=== PATIENT | female | born 1975 | race American Indian/Alaskan Native ===

== ENCOUNTER → 2016-10-01 | Outpatient (CLI) | payer MEDICAID ==
--- NOTE | 2016-10-01 16:50 | CR ---
EXAMINATION: Thoracic spine HISTORY: Pain COMPARISON: CT dated 01/24/2016 TECHNIQUE: AP and lateral views FINDINGS: The thoracic spinal alignment appears grossly normal. The vertebral body heights and disc spaces appear well-maintained. There is no fracture or dislocation. Minimal marginal osteophytes are noted. Bone mineralization appears normal. No acute findings. IMPRESSION: Mild degenerative changes without acute findings.
== END ==
LOC: MW.CHRC 13:59
PROVIDERS: ATTEND Family Medicine
DX: M54.6 Pain in thoracic spine (principal)
CPT/HCPCS: 72072; 72072-26

== ENCOUNTER → 2016-10-15 | Outpatient (CLI) | payer MEDICAID ==
--- NOTE | 2016-10-16 15:20 | MR ---
EXAM DATE: 10/15/16 PATIENT'S AGE: 41 Patient: ARTHUR HUFF Facility: [place], [place] Site . Site : 1975 Study: MRI Shoulder Right [id number]/20/2017 7:07:58 PM Ordering Physician: Kayleigh Patten Final Report: Indication: Pain after fall. Comparison: None. Technique: Axial T2 fat sat, coronal PD and T2 fat sat and sagittal T1 and T2 fat-sat sequences. Findings: Rotator cuff: Supraspinatus, infraspinatus, teres minor and subscapularis tendons are intact. No tear or tendinosis. No rotator cuff muscle atrophy or edema. Acromioclavicular joint and coracoacromial arch: Flat type 1 undersurface to the lateral acromion. Acromial humeral distance at narrowest is 8 mm. Thickness of the coracoacromial ligament is normal. Minimal degenerative arthrosis changes at the acromioclavicular joint with shallow subchondral edema and cysts of the distal clavicle. No significant inferior osteophytes. No significant fluid in the subacromial/subdeltoid bursa. Clavicle is intact with normal appearing coracoclavicular ligament. Subcoracoid interval and coracoid index are normal. Biceps labral complex: No labral tear. Biceps anchor is intact. Long head of the biceps is appropriately located with expected caliber and signal. Glenohumeral joint: Anatomic alignment. Uniform cartilage. Physiologic fluid. No capsulitis. Bones and soft tissues: Deltoid bulk and signal is normal. Axilla is clear. No bone lesion or fracture. Impression: Minimal degenerative arthrosis acromioclavicular joint. No other significant finding. Dictated by Gurdeep Valadez MD @ Oct 16 2016 10:11AM (Electronic Signature) Report Signed by Proxy and Original Signed Document filed in the Medical Record. MTDD
== END | disposition home or self-care (01) ==
LOC: MW.MRI 16:53
PROVIDERS: ATTEND Family Medicine
DX: M25.511 Pain in right shoulder (principal); M19.011 Primary osteoarthritis, right shoulder
CPT/HCPCS: 73221-26-RT; 73221-RT

== ENCOUNTER → 2016-11-14 | Outpatient (CLI) | payer MEDICAID | LOC: MW.CHRC 14:10 | PROVIDERS: ATTEND Family Medicine | DX: J01.90 Acute sinusitis, unspecified (principal) | CPT/HCPCS: 87081; 87880 ==

== ENCOUNTER → 2016-12-03 | Outpatient (CLI) | payer MEDICAID ==
[2016-12-03 14:34] LABS: CHLORIDE,CL 107 mmol/L (98-110); SODIUM,NA 140 mmol/L (136-146)
--- NOTE | 2016-12-04 09:43 | CR ---
EXAMINATION: Cervical spine HISTORY: Weakness COMPARISON: None TECHNIQUE: AP and lateral views obtained FINDINGS: The cervical spinal alignment is normal. The vertebral body heights and disc spaces appear well-maintained. There is no fracture or dislocation. The prevertebral soft tissues appear normal. Bone mineralization is normal. IMPRESSION: Grossly unremarkable cervical spine.
--- NOTE | 2016-12-04 09:44 | CR ---
EXAMINATION: Right wrist HISTORY: Polyneuropathy COMPARISON: None TECHNIQUE: 2 views FINDINGS/IMPRESSION: There is no acute osseous abnormality, dislocation, or fracture identified. Bon e mineralization and joint spaces appear normal. The radiocarpal alignment is preserved.
== END | disposition home or self-care (01) ==
LOC: MW.CHRC 13:40
PROVIDERS: ATTEND Family Medicine
DX: G62.9 Polyneuropathy, unspecified (principal); R53.1 Weakness
CPT/HCPCS: 36415; 72040; 72040-26; 73100-26-RT; 73100-RT; 80053; 82306; 82550; 82607; 83036; 83516; 84439; 84443; 85025; 85610; 85652; 86038; 86140; 86225; 86235; 86256; 86430

== ENCOUNTER → 2016-12-10 | Outpatient (CLI) | payer MEDICAID | LOC: MW.CHRC 11:05 | PROVIDERS: ATTEND Family Medicine | DX: E78.5 Hyperlipidemia, unspecified (principal) | CPT/HCPCS: 36415; 80061 ==

== ENCOUNTER → 2016-12-17 | Outpatient (CLI) | payer MEDICAID ==
--- NOTE | 2016-12-17 17:46 | MY ---
EXAMINATION: Bilateral digital mammography utilizing CAD. HISTORY: Screening exam. Baseline. FINDINGS: Bilateral heterogeneously dense breast tissue. There are a few small intramammary lymph nodes noted. No suspicious calcifications, masses or architectural distortions. No pathologic sabino earing lymph nodes, no abnormal skin thickening or nipple inversion. CAD highlighted regions appea r normal at this time. IMPRESSION: BI-RADS category II - Benign finding. Continued screening according to ACR-ACS guidelin es suggested. THE FALSE-NEGATIVE RATE OF MAMMOGRAM IS APPROXIMATELY 10%. MANAGEMENT OF A PALPABLE ABNORMALITY MUST BE BASED UPON CLINICAL GROUNDS. SENSITIVITY FOR DETECTION OF ABNORMALITIES IN DENSE BREASTS IS LOW. NOTE: A letter will be sent to the patient regarding findings. [facility] -- [place], [place] [phone] - FAX [phone]
== END ==
LOC: MW.MAM 14:50
PROVIDERS: ATTEND Family Medicine
DX: Z00.00 Encounter for general adult medical examination without abnormal findings (principal)
CPT/HCPCS: G0202; G0202-26

== ENCOUNTER 2017-09-25 06:33 | Day surgery (SDC) | payer MEDICAID ==
[2017-09-25] MEDS ORDERED: Lactated Ringers 1,000 ML IV SCH ×2 (07:00→08:00)
[2017-09-25] MEDS ORDERED: Midazolam 1 MG/ML 2 ML SDV ONE (07:02)
[2017-09-25] MEDS ORDERED: Propofol 200 MG/20 ML SDV ONE (07:02)
[2017-09-25] MEDS ORDERED: Lidocaine 2% 5 ML SDV ONE (07:02)
[2017-09-25] MEDS ORDERED: fentaNYL 100 MCG/2 ML SDV ONE (07:02)
--- NOTE | 2017-09-25 07:17 | PCM.PREANE ---
Preanesthetic Assessment - Anesthesia/Transfusion/Family Hx Anesthesia History: Prior Anesthesia Without Reaction Family History of Anesthesia Reaction: No Transfusion History: No Prior Transfusion(s) Intubation History: Unknown - Review of Systems General: No Symptoms Pulmonary: No Symptoms Cardiovascular: No Symptoms Gastrointestinal: No Symptoms Neurological: Weakness Other: Reports: None - Physical Assessment NPO Status Date: 09/24/17 NPO Status Time: 20:00 O2 Sat by Pulse Oximetry: 95 Respiratory Rate: 16 Vital Signs: Last Vital Signs Temp 36.4 C 09/25/17 06:47 Pulse 59 L 09/25/17 06:47 Resp 16 09/25/17 06:47 BP 1198/58 H 09/25/17 06:47 Pulse Ox 95 09/25/17 06:47 Height: 1.63 m Weight: 87.997 kg ASA Class: 3 Mental Status: Alert & Oriented x3 Airway Class: Mallampati = 2 Dentition: Reports: Normal Dentition Thyro-Mental Finger Breadths: 3 Mouth Opening Finger Breadths: 3 ROM/Head Extension: Full Lungs: Clear to Auscultation, Normal Respiratory Effort Cardiovascular: Regular Rate, Regular Rhythm - Allergies Allergies/Adverse Reactions: Allergies Allergy/AdvReac Type Severity Reaction Status Date / Time albuterol Allergy Rash Verified 09/20/17 15:44 bupropion HCl Allergy Rash Verified 09/20/17 15:44 [From Wellbutrin] nickel Allergy Rash Verified 09/20/17 15:44 prochlorperazine edisylate Allergy Paralysis Verified 09/20/17 15:44 [From Compazine] prochlorperazine maleate Allergy Paralysis Verified 09/20/17 15:44 [From Compazine] - Blood Blood Available: No - Anesthesia Plan Pre-Op Medication Ordered: None - Acknowledgements Anesthesia Type Planned: MAC Pt an Appropriate Candidate for the Planned Anesthesia: Yes Alternatives and Risks of Anesthesia Discussed w Pt/Guardian: Yes Pt/Guardian Understands and Agrees with Anesthesia Plan: Yes PreAnesthesia Questionnaire HEENT History: Reports: Impaired Vision, Other (See Below) Other HEENT History: wears glasses Cardiovascular History: Reports: Other (See Below) (h/o increased cholesterol) Gastrointestinal History: Reports: None Genitourinary History: Reports: Other (See Below) Other Genitourinary History: potassium low in last blood draw 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: Endometriosis, , 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 Musculoskeletal History: Reports: Arthritis, Fracture, Neck Pain, Chronic Other Musculoskeletal History: states hx of fx to left ankle and left wrist Neurological History: Reports: Migraines Psychiatric History: Reports: Anxiety, Depression Endocrine/Metabolic History: Reports: Obesity/BMI 30+ Hematologic History: Reports: None Other Hematologic History: vitamin D deficiency Immunologic History: Reports: Other (See Below) Other Immunologic History: lupus Dermatologic History: Reports: None - Infectious Disease History Infectious Disease History: Reports: Chicken Pox - Past Surgical History Head Surgeries/Procedures: Reports: None Cardiovascular Surgical History: Reports: None GI Surgical History: Reports: Cholecystectomy, Colonoscopy, Hernia, Abdominal Female Surgical History: Reports: D&C, Hysterectomy, Salpingo-Oophorectomy, Tubal Ligation Other Female Surgeries/Procedures: laparotomy with oophorectomy, Other Surgical History Comment: Rt. CTR done over a month ago - SUBSTANCE USE Smoking Status *Q: Former Smoker Tobacco Use Within Last Twelve Months: No Second Hand Smoke Exposure: No Days Per Week of Alcohol Use: 1 Number of Drinks Per Day: 4 Total Drinks Per Week: 4 Recreational Drug Use History: No - HOME MEDS Home Medications: Home Meds Cholecalciferol (Vitamin D3) [Vitamin D3] 1,000 units PO DAILY 09/06/16 [History ] Cyanocobalamin (Vitamin B12) [Vitamin B12] 1,000 mcg IM ASDIRECTED 05/27/17 [ History] Estradiol [Estrace] 3 mg PO DAILY 05/27/17 [History] - CURRENT (IN HOUSE) MEDS Current Meds: Current Medications Hydrocodone Bitart/Acetaminophen (Gaylord 325-5 Mg) 1 tab PO Q4H PRN PRN Reason: Pain Bupivacaine HCl/Epinephrine Bitart (Marcaine 0.25%/Epinephrine 1:200,000) 10 ml INJECT ONETIME ONE Stop: 09/25/17 08:01 Cefazolin Sodium/Dextrose 2 gm (/ Premix) 50 mls @ 100 mls/hr IV ONETIME ONE Stop: 09/25/17 08:29 Lactated Ringer's (Ringers, Lactated) 1,000 mls @ 500 mls/hr IV .BOLUS MICHAEL Lactated Ringer's (Ringers, Lactated) 1,000 mls @ 125 mls/hr IV ASDIRECTED MICHAEL Last Admin: 09/25/17 06:55 Dose: 125 mls/hr Discontinued Medications Fentanyl (Sublimaze) Confirm Administered Dose 100 mcg .ROUTE .STK-MED ONE Stop: 09/25/17 07:03 Lidocaine (Xylocaine-Mpf 2%) Confirm Administered Dose 5 ml .ROUTE .STK-MED ONE Stop: 09/25/17 07:03 Midazolam HCl (Versed 1 Mg/Ml) Confirm Administered Dose 2 mg .ROUTE .STK-MED ONE Stop: 09/25/17 07:03 Propofol (Diprivan 20 Ml) Confirm Administered Dose 200 mg .ROUTE .STK-MED ONE Stop: 09/25/17 07:03
[2017-09-25] MEDS ORDERED: Bupivacaine 25%/EPINEPHrine/PF 30 ML ONE (07:26)
[2017-09-25] MEDS ORDERED: Sodium Chloride 0.9% 20 ML ONE (08:00)
[2017-09-25] MEDS ORDERED: ceFAZolin 2 GM in Premix Bag 1 BAG IV ONE (08:00)
[2017-09-25] MEDS ORDERED: ceFAZolin 1 GM Vial ONE (08:00)
[2017-09-25] MEDS ORDERED: Acetaminophen/HYDROcodone 325-5 MG Tab PO PRN (08:00)
[2017-09-25] MEDS ORDERED: Bupivacaine 0.25%/EPINEPHrine 1:200,000 10 ML SDV INJECT ONE (08:00)
[2017-09-25 09:16] VITALS: BP 113/66
--- NOTE | 2017-09-25 09:32 | PCM48HPAN ---
Post Anesthesia Note - EVALUATION WITHIN 48HRS OF ANESTHETIC Vital Signs in Normal Range: Yes Patient Participated in Evaluation: Yes Respiratory Function Stable: Yes Airway Patent: Yes Cardiovascular Function Stable: Yes Hydration Status Stable: Yes Pain Control Satisfactory: Yes Nausea and Vomiting Control Satisfactory: Yes Mental Status Recovered: Yes Resp Rate: 17 - COMMENTS/OBSERVATIONS Free Text/Narrative:: no anesthesia problems
--- NOTE | 2017-09-25 14:07 | PCM.OPNOTE ---
- General Post-Op/Procedure Note Date of Surgery/Procedure: 09/25/17 Operative Procedure(s): left carpal tunnel release Pre Op Diagnosis: left carpal tunnel syndrome Post-Op Diagnosis: Same Anesthesia Technique: Local, MAC Primary Surgeon: Malia Davalos Disk Sharpener: Sade Tatum Complications: None Condition: Good Free Text/Narrative:: Intake & Output 09/24/17 09/25/17 09/25/17 23:59 07:59 15:59 Intake Total 800 Balance 800 [id number]
--- NOTE | 2017-09-25 19:31 | OR ---
SURGEON: LIZZETTE NGUYEN MD DATE OF PROCEDURE: 09/25/2017 PREOPERATIVE DIAGNOSIS: Left carpal tunnel syndrome. POSTOPERATIVE DIAGNOSIS: Left carpal tunnel syndrome. PROCEDURE: Left carpal tunnel release. BRAND REPRESENTATIVE: MARQUES Tabares. Reason for medical records assistant was prepping and draping and retraction assistance. INDICATIONS: Ms. Darden is here today for left carpal tunnel release. She has previously had the right carpal tunnel release and has done well with this. She would like to proceed with the left. Risks were including, but not limited to, bleeding, infection, damage to the underlying or overlying structures, possible need for future interventions, and possible scarring. She has failed conservative management and would like to proceed. PROCEDURE IN DETAIL: After informed consent was obtained and placed on the chart, the patient was brought to the operating theater and laid in a supine position. After adequate local MAC anesthesia was obtained, the area was prepped and draped, and a time- out was completed to confirm side and site. Attention was then paid to exsanguination of the arm and insufflation of the tourniquet to 200 mmHg. Attention was then paid to dissection of the transverse carpal ligament, and dissection was carried through the skin and subcutaneous tissues using a 15 blade. Once the ligament was breached, the dissection was then carried distally and proximally under direct visualization until complete release of the ligament. Once complete release was ensured, the area was copiously irrigated and closed using 5-0 nylon suture in a horizontal mattress fashion. She tolerated the procedure well, and all counts and needles were correct at the end of the case. The wound was dressed with Xeroform, fluffs, Kerlix gauze dressing, and a 2-inch Romero wrap. FOLLOWUP INSTRUCTIONS: The patient will see us in 10 to 14 days for suture removal, sooner if there are problems, questions, or concerns. She was given a prescription for pain control. MEGHANGGTMEGHAN / LESLY /[id number]
== END 2017-09-25 09:15 | disposition home or self-care (01) ==
LOC: MW.SDS 06:33
PROVIDERS: ATTEND Plastic Surgery
DX: G56.02 Carpal tunnel syndrome, left upper limb (principal); F41.9 Anxiety disorder, unspecified; M18.11 Unilateral primary osteoarthritis of first carpometacarpal joint, right hand; E53.8 Deficiency of other specified B group vitamins; F32.9 Major depressive disorder, single episode, unspecified; E78.5 Hyperlipidemia, unspecified; L93.0 Discoid lupus erythematosus; E66.9 Obesity, unspecified; R76.8 Other specified abnormal immunological findings in serum; E11.42 Type 2 diabetes mellitus with diabetic polyneuropathy; E11.51 Type 2 diabetes mellitus with diabetic peripheral angiopathy without gangrene; E55.9 Vitamin D deficiency, unspecified; M35.9 Systemic involvement of connective tissue, unspecified; K11.7 Disturbances of salivary secretion; Z88.8 Allergy status to other drugs, medicaments and biological substances; Z90.49 Acquired absence of other specified parts of digestive tract; Z98.890 Other specified postprocedural states; Z87.891 Personal history of nicotine dependence; Z68.32 Body mass index [BMI] 32.0-32.9, adult; Z91.09 Other allergy status, other than to drugs and biological substances; Z79.899 Other long term (current) drug therapy; Z79.890 Hormone replacement therapy
CPT/HCPCS: 64721; J0690; J2250; J3010; J7120; 01810; J2704

== ENCOUNTER 2017-10-04 23:37 | Emergency (ER) | payer MEDICAID ==
--- NOTE | 2017-10-04 23:57 | EDM.PDOC ---
ED HPI GENERAL MEDICAL PROBLEM - General Chief Complaint: Lower Extremity Injury/Pain Stated Complaint: PAIN RT ANKLE Time Seen by Provider: 10/04/17 23:52 - History of Present Illness INITIAL COMMENTS - FREE TEXT/NARRATIVE: HISTORY AND PHYSICAL: History of present illness: The patient is a healthy 42-year-old female who underwent left carpal tunnel surgery here on September 25 and lost her footing and fell twisting her right ankle. She says she got caught up in a rug and went to the ground but did not pass out or black out and has no head neck or back pain and has only pain to her right ankle and right lower leg. She has no knee pain and hip pain and no other extremity complaints or truncal complaints. Prior to this fall she was in her usual state of good health without any systemic complaints. She says her carpal tunnel surgery and her left wrist are healing well but when she fell tonight she did put out her left wrist and may have bumped it and has some pain there but it is not excessive. She has no neurovascular changes in any of her extremities specifically the right foot. She tells me that her ankle and foot were going in the wrong direction and her boyfriend pulled on it and put it back in place. She has not taken anything for pain except her pain pills from her carpal tunnel surgery. Review of systems: As per history of present illness and below otherwise all systems reviewed and negative. Past medical history: As per history of present illness and as reviewed below otherwise noncontributory. Surgical history: As per history of present illness and as reviewed below otherwise noncontributory. Social history: No reported history of drug or alcohol abuse. Family history: As per history of present illness and as reviewed below otherwise noncontributory. Physical exam: Gen.: Well-developed well-nourished female who is nontoxic and vital signs reviewed by me. HEENT: Atraumatic, normocephalic, negative for conjunctival pallor or scleral icterus, mucous membranes moist, throat clear, neck supple, nontender, trachea midline. There is no soft tissue injury of the scalp neuro no midline step-offs tenderness defects of the cervical spine Lungs: Clear to auscultation, breath sounds equal bilaterally, chest nontender. Heart: S1S2, regular in rhythm no overt murmurs Abdomen: Soft, nondistended, nontender. NABS Pelvis: Stable nontender. Lateral hip tenderness Genitourinary: Deferred. Rectal: Deferred. Extremities: At the left wrist on the volar surface there are sutures seen in the incision is clean and dry without erythema and there is no soft tissue swelling. The remainder of the wrist is without bony deformity tenderness or soft tissue swelling and the patient has full range of motion of the wrist and the fingers. Neurovascular is intact. At the right ankle there is diffuse soft tissue swelling of the ankle more at the lateral malleolus and anteriorly but the alignment looks normal. There is diffuse tenderness with palpation of this entire region. There is no distal foot or toe tenderness and pulses are intact. Proximally there is an area of ill-defined ecchymosis at the lateral aspect of the lower tib-fib area with some tenderness and there is some proximal fibular tenderness on palpation. There is overall some soft tissue swelling at the lateral aspect of the leg but the compartments are soft. The legs are negative for cords or calf pain. Neurovascular unremarkable. Neuro: Awake, alert, oriented. Cranial nerves II through XII unremarkable. Cerebellum unremarkable. Motor and sensory unremarkable throughout. Exam nonfocal. Diagnostics: X-ray of right ankle and tib-fib Therapeutics: Dilaudid IM We will arrange to get a wheelchair for [employer] as patient cannot use Crutches with her recent carpal tunnel surgery Short-leg post mold and sugar tong splint 0027: Case was discussed with Dr. Tomas Lynn at [facility] in [place] who is the orthopedic surgeon psychologist educational. He recommends short-leg post mold and sugar tong splint and immobilization and the patient can be seen on Saturday in our orthopedics clinic. Patient and family at bedside are aware of this care plan. Impression: Medial malleolus fracture and midshaft fibula fracture, right Definitive disposition and diagnosis as appropriate pending reevaluation and review of above. right ankle Pain Score (Numeric/FACES): 8 - Related Data Allergies Allergy/AdvReac Type Severity Reaction Status Date / Time albuterol Allergy Rash Verified 10/04/17 23:49 bupropion HCl Allergy Rash Verified 10/04/17 23:49 [From Wellbutrin] nickel Allergy Rash Verified 10/04/17 23:49 prochlorperazine edisylate Allergy Paralysis Verified 10/04/17 23:49 [From Compazine] prochlorperazine maleate Allergy Paralysis Verified 10/04/17 23:49 [From Compazine] Home Meds: Home Meds Cholecalciferol (Vitamin D3) [Vitamin D3] 1,000 units PO DAILY 09/06/16 [History ] Cyanocobalamin (Vitamin B12) [Vitamin B12] 1,000 mcg IM ASDIRECTED 05/27/17 [ History] Estradiol [Estrace] 3 mg PO DAILY 05/27/17 [History] Acetaminophen/HYDROcodone [Keene 325-5 MG] 5 - 325 mg PO Q6HR PRN 10/05/17 [ History] Orphenadrine [Norflex] 100 mg PO BID 10/05/17 [History] Past Medical History HEENT History: Reports: Other (See Below) Other HEENT History: wears glasses Cardiovascular History: Reports: Other (See Below) (h/o increased cholesterol) Gastrointestinal History: Reports: Chronic Constipation Genitourinary History: Reports: Other (See Below) Other Genitourinary History: potassium low in last blood draw 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: Endometriosis, , 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 Musculoskeletal History: Reports: Arthritis, Fracture Other Musculoskeletal History: states hx of fx to left ankle x7 and left wrist x3 Neurological History: Reports: Migraines Endocrine/Metabolic History: Reports: Obesity/BMI 30+ Hematologic History: Reports: B12 Deficiency, Other (See Below) Other Hematologic History: vitamin D deficiency Immunologic History: Reports: Other (See Below) Other Immunologic History: lupus Dermatologic History: Reports: None - Infectious Disease History Infectious Disease History: Reports: Chicken Pox - Past Surgical History Head Surgeries/Procedures: Reports: None Cardiovascular Surgical History: Reports: None GI Surgical History: Reports: Cholecystectomy, Colonoscopy, Hernia, Abdominal Female Surgical History: Reports: D&C, Hysterectomy, Salpingo-Oophorectomy, Tubal Ligation Other Female Surgeries/Procedures: laparotomy with oophorectomy, Other Surgical History Comment: Rt. CTR done over a month ago Social & Family History - Family History Family Medical History: Noncontributory HEENT: Reports: Cataract, Glaucoma, Otitis Media Cardiac: Reports: [place], Other (See Below) Other Cardiac Family History: "heart disease" Respiratory: Reports: Asthma : Reports: Dialysis Musculoskeletal: Reports: Other (See Below) Other Musculoskeletal Family History: scoliosis Neurological: Reports: Alzheimers Disease, CVA, Dementia, Migraines Psychiatric: Reports: Bipolar, Depression Endocrine/Metabolic: Reports: Diabetes, Type I, Diabetes, type II Hematologic: Reports: Anemia Oncologic: Reports: Breast, Cervix, Colon, Hodgkin's Lymphoma, Lung, Other (See Below) Other Oncologic Family History: stomach - Tobacco Use Smoking Status *Q: Former Smoker Years of Tobacco use: 21 Used Tobacco, but Quit: Yes Month Tobacco Last Used: 2008 Second Hand Smoke Exposure: No - Caffeine Use Caffeine Use: Reports: Tea - Alcohol Use Days Per Week of Alcohol Use: 1 Number of Drinks Per Day: 4 Total Drinks Per Week: 4 - Recreational Drug Use Recreational Drug Use: No Drug Use in Last 12 Months: No Review of Systems - Review of Systems Review Of Systems: ROS reveals no pertinent complaints other than HPI. ED EXAM, GENERAL - Physical Exam Exam: See Below (See dictation) Course - Vital Signs Last Recorded V/S: Last Vital Signs Temp 36.4 C 10/04/17 23:43 Pulse 75 10/04/17 23:43 Resp 17 10/04/17 23:43 BP 123/77 10/04/17 23:43 Pulse Ox 100 10/04/17 23:43 - Orders/Labs/Meds Orders: Active Orders 24 hr Category Date Time Status Ankle Min 3V Rt [CR] Stat Exams 10/04/17 23:44 Taken Tibia Fibula Rt [CR] Stat Exams 10/04/17 23:56 Taken HYDROmorphone [Dilaudid] Med 10/05/17 00:35 Once 1 mg IM ONETIME ONE DME for Discharge [COMM] Stat Oth 10/05/17 00:35 Ordered Departure - Departure Time of Disposition: 00:37 Disposition: Home, Self-Care 01 Condition: Good Clinical Impression: Fibula fracture Qualifiers: Encounter type: initial encounter Fibula location: shaft Fracture type: closed Fracture morphology: unspecified fracture morphology Laterality: right Qualified Code(s): S82.401A - Unspecified fracture of shaft of right fibula, initial encounter for closed fracture Fractured medial malleolus Qualifiers: Encounter type: initial encounter Fracture type: closed Fracture alignment: displaced Laterality: right Qualified Code(s): S82.51XA - Displaced fracture of medial malleolus of right tibia, initial encounter for closed fracture - Discharge Information Referrals: Sandor Victor [Primary Care Provider] - Forms: ED Department Discharge Additional Instructions: The following information is given to patients seen in the emergency department who are being discharged to home. This information is to outline your options for follow-up care. We provide all patients seen in our emergency department with a follow-up referral. The need for follow-up, as well as the timing and circumstances, are variable depending upon the specifics of your emergency department visit. If you don't have a primary care physician on staff, we will provide you with a referral. We always advise you to contact your personal physician following an emergency department visit to inform them of the circumstance of the visit and for follow-up with them and/or the need for any referrals to a consulting specialist. The emergency department will also refer you to a specialist when appropriate. This referral assures that you have the opportunity for followup care with a specialist. All of these measure are taken in an effort to provide you with optimal care, which includes your followup. Under all circumstances we always encourage you to contact your private physician who remains a resource for coordinating your care. When calling for followup care, please make the office aware that this follow-up is from your recent emergency room visit. If for any reason you are refused follow-up, please contact the [facility] emergency department at and ask to speak to the emergency department charge nurse. [facility]--Orthopedic clinic Professional [address] [address] Do not weight-bear on this leg to you're followed up in the clinic. Ice and elevate the area to reduce swelling. Use the hydrocodone you have taking 1-2 tablets every 6-8 hours as needed as well as adding [id number] ibuprofen. Please do not remove splint that was placed on in the ER. These call and follow- up in orthopedics clinic on Saturday or Saturday and return to ER as needed and as discussed - My Orders Last 24 Hours: My Active Orders 10/04/17 23:44 Ankle Min 3V Rt [CR] Stat 10/04/17 23:56 Tibia Fibula Rt [CR] Stat 10/05/17 00:35 HYDROmorphone [Dilaudid] 1 mg IM ONETIME ONE DME for Discharge [COMM] Stat - Assessment/Plan Last 24 Hours: My Active Orders 10/04/17 23:44 Ankle Min 3V Rt [CR] Stat 10/04/17 23:56 Tibia Fibula Rt [CR] Stat 10/05/17 00:35 HYDROmorphone [Dilaudid] 1 mg IM ONETIME ONE DME for Discharge [COMM] Stat
[2017-10-05] MEDS ORDERED: HYDROmorphone 2 MG/ML Syringe IM ONE (00:35)
[2017-10-05] MEDS ORDERED: HYDROmorphone 1 MG/ML Syringe ONE (00:46)
[2017-10-05 02:17] VITALS: BP 142/90
--- NOTE | 2017-10-07 10:48 | CR ---
EXAM DATE: 10/04/17 PATIENT'S AGE: 42 Patient: ARTHUR HUFF Facility: [place], [place] Site . Site : 1975 Study: XRay Extremity Right Ankle [id number]/10/2018 12:01:51 AM Ordering Physician: Gypsy Monreal Final Report: Indication: Ankle pain after fall Technique: Three views right ankle Comparison: None Findings/impression: 1. There is a minimally displaced, obliquely oriented fracture through the medial malleolus. There also appears to be a fracture of the mid tibial shaft, incompletely visualized on this exam. Recommend tibia/ fibula films for further evaluation. 2. Remainder of the osseous structures are intact. There is mild soft tissue swelling around the ankle joint. Dictated by Sade Ricardo MD @ Oct 05 2017 12:11AM (Electronic Signature) Report Signed by Proxy. MARNI
--- NOTE | 2017-10-07 10:49 | CR ---
EXAM DATE: 10/04/17 PATIENT'S AGE: 42 Patient: ARTHUR HUFF Facility: [place], [place] Site . Site : 1975 Study: XRay Extremity Right Tib-fib [id number]/10/2018 12:15:02 AM Ordering Physician: Gypsy Monreal Final Report: Indication: Fall, right leg pain Technique: Frontal and lateral views right tibia and fibula Comparison: Right ankle radiographs from same date Findings: Bones: There is a minimally displaced oblique fracture through the mid shaft of the right fibula. Remainder of the osseous structures are intact. Joint spaces: Unremarkable. Soft tissues: Unremarkable. Impression: Minimally displaced oblique fracture through the mid shaft of the right fibula. Dictated by Sade Ricardo MD @ Oct 05 2017 12:16AM (Electronic Signature) Report Signed by Proxy. MARNI
== END 2017-10-05 02:14 | disposition home or self-care (01) ==
LOC: MW.ED 23:37
DX: S82.51XA Displaced fracture of medial malleolus of right tibia, initial encounter for closed fracture (principal); S82.401A Unspecified fracture of shaft of right fibula, initial encounter for closed fracture; X50.1XXA Overexertion from prolonged static or awkward postures, initial encounter; Z88.8 Allergy status to other drugs, medicaments and biological substances; Z79.899 Other long term (current) drug therapy; Z90.710 Acquired absence of both cervix and uterus; Z87.891 Personal history of nicotine dependence; Z91.09 Other allergy status, other than to drugs and biological substances
CPT/HCPCS: 73590; 73610; 96372; 99283; J1170

== ENCOUNTER 2018-04-08 10:27 | Emergency (ER) | payer MEDICAID ==
[2018-04-08 10:53] VITALS: BP 118/69
[2018-04-08] MEDS ORDERED: Ibuprofen 600 MG Tab PO ONE (11:04)
--- NOTE | 2018-04-08 11:32 | CR ---
EXAMINATION: Right ankle HISTORY: Pain COMPARISON: 10/05/2017 TECHNIQUE: 3 views FINDINGS/IMPRESSION: There is a nearly well-healed mid fibular fracture noted with postsurgical bundy es within the ankle. There is no fracture or acute osseous abnormality. Bone mineralization and joint spaces are otherwise preserved.
--- NOTE | 2018-04-08 11:38 | EDM.PDOC ---
ED HPI GENERAL MEDICAL PROBLEM - General Chief Complaint: Lower Extremity Injury/Pain Stated Complaint: RT FOOT HURTS Time Seen by Provider: 04/08/18 10:28 Source of Information: Reports: Patient History Limitations: Reports: No Limitations - History of Present Illness INITIAL COMMENTS - FREE TEXT/NARRATIVE: History of present illness: []Patient broke her ankle and distal tibia shaft in September that required surgery and has been healing well until yesterday when she stepped on uneven concrete and felt a pop in her ankle with increasing pain. Review of systems: As per history of present illness and below otherwise all systems reviewed and negative. Past medical history: As per history of present illness and as reviewed below otherwise noncontributory. Surgical history: As per history of present illness and as reviewed below otherwise noncontributory. Social history: No reported history of drug or alcohol abuse. Family history: As per history of present illness and as reviewed below otherwise noncontributory. Physical exam: General: Well developed, well nourished in NAD HEENT: Atraumatic, normocephalic, pupils reactive, negative for conjunctival pallor or scleral icterus, mucous membranes moist, throat clear, neck supple, nontender, trachea midline. Lungs: Clear to auscultation, breath sounds equal bilaterally, chest nontender. Heart: S1S2, regular, negative for clicks, rubs, or JVD. Abdomen: Soft, nondistended, nontender. Negative for masses or hepatosplenomegaly. Negative for costovertebral tenderness. Pelvis: Stable nontender. Genitourinary: Deferred. Rectal: Deferred. Extremities: Atraumatic, no obvious new trauma, distal pulses are palpable moves toes and station intact negative for cords or calf pain. Neurovascular unremarkable. Neuro: Awake, alert, oriented. Cranial nerves II through XII unremarkable. Cerebellum unremarkable. Motor and sensory unremarkable throughout. Exam nonfocal. Skin:warm and dry Diagnostics: X-ray ankle shows no new fractures Therapeutics: Ibuprofen ED Course: Unremarkable Impression: Ankle sprain Prescriptions: None Plan: Where your ankle boot for the next few days, ice and ibuprofen for pain follow- up with orthopedics as needed. Definitive disposition and diagnosis as appropriate pending reevaluation and review of above. Right Ankle Pain Score (Numeric/FACES): 10 - Related Data Allergies Allergy/AdvReac Type Severity Reaction Status Date / Time albuterol Allergy Rash Verified 10/04/17 23:49 bupropion HCl Allergy Rash Verified 10/04/17 23:49 [From Wellbutrin] nickel Allergy Rash Verified 10/04/17 23:49 prochlorperazine edisylate Allergy Paralysis Verified 10/04/17 23:49 [From Compazine] prochlorperazine maleate Allergy Paralysis Verified 10/04/17 23:49 [From Compazine] Home Meds: Home Meds Hydroxychloroquine [Plaquenil] 200 mg DAILY 04/08/18 [History] Linaclotide [Linzess] 145 mcg DAILY 04/08/18 [History] Past Medical History HEENT History: Reports: Other (See Below) Other HEENT History: wears glasses Cardiovascular History: Reports: Other (See Below) Gastrointestinal History: Reports: Chronic Constipation Genitourinary History: Reports: Other (See Below) Other Genitourinary History: potassium low in last blood draw 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: Endometriosis, , 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 Musculoskeletal History: Reports: Arthritis, Fracture Other Musculoskeletal History: states hx of fx to left ankle x7 and left wrist x3 Neurological History: Reports: Migraines, Other (See Below) Other Neuro History: Fibromyalgia Endocrine/Metabolic History: Reports: Obesity/BMI 30+ Hematologic History: Reports: B12 Deficiency, Other (See Below) Other Hematologic History: vitamin D deficiency Immunologic History: Reports: Other (See Below) Other Immunologic History: lupus Dermatologic History: Reports: None - Infectious Disease History Infectious Disease History: Reports: None - Past Surgical History Head Surgeries/Procedures: Reports: None Cardiovascular Surgical History: Reports: None GI Surgical History: Reports: Cholecystectomy, Colonoscopy, Hernia, Abdominal Female Surgical History: Reports: D&C, Hysterectomy, Salpingo-Oophorectomy, Tubal Ligation Other Female Surgeries/Procedures: laparotomy with oophorectomy, Social & Family History - Family History Family Medical History: Noncontributory HEENT: Reports: Cataract, Glaucoma, Otitis Media Cardiac: Reports: [place], Other (See Below) Other Cardiac Family History: "heart disease" Respiratory: Reports: Asthma : Reports: Dialysis Musculoskeletal: Reports: Other (See Below) Other Musculoskeletal Family History: scoliosis Neurological: Reports: Alzheimers Disease, CVA, Dementia, Migraines Psychiatric: Reports: Bipolar, Depression Endocrine/Metabolic: Reports: Diabetes, Type I, Diabetes, type II Hematologic: Reports: Anemia Oncologic: Reports: Breast, Cervix, Colon, Hodgkin's Lymphoma, Lung, Other (See Below) Other Oncologic Family History: stomach - Tobacco Use Smoking Status *Q: Never Smoker Second Hand Smoke Exposure: No - Caffeine Use Caffeine Use: Reports: Tea - Recreational Drug Use Recreational Drug Use: No Review of Systems - Review of Systems Review Of Systems: ROS reveals no pertinent complaints other than HPI. ED EXAM, GENERAL - Physical Exam Exam: See Below (See history of present illness) Course - Vital Signs Last Recorded V/S: Last Vital Signs Temp 97.5 F 04/08/18 10:49 Pulse 71 04/08/18 10:49 Resp 18 04/08/18 10:49 BP 118/69 04/08/18 10:49 Pulse Ox 97 04/08/18 10:49 - Orders/Labs/Meds Meds: Medications Discontinued Medications Generic Name Dose Route Start Last Admin Trade Name Freq PRN Reason Stop Dose Admin Ibuprofen 600 mg 04/08/18 11:04 Motrin PO 04/08/18 11:05 ONETIME ONE Departure - Departure Time of Disposition: 11:41 Disposition: Home, Self-Care 01 Condition: Good Clinical Impression: Right ankle sprain Qualifiers: Encounter type: initial encounter Involved ligament of ankle: unspecified ligament Qualified Code(s): S93.401A - Sprain of unspecified ligament of right ankle, initial encounter - Discharge Information *PRESCRIPTION DRUG MONITORING PROGRAM REVIEWED*: No *COPY OF PRESCRIPTION DRUG MONITORING REPORT IN PATIENT CARLOS: No Referrals: PCP,None [Primary Care Provider] - Forms: ED Department Discharge Additional Instructions: The following information is given to patients seen in the emergency department who are being discharged to home. This information is to outline your options for follow-up care. We provide all patients seen in our emergency department with a follow-up referral. The need for follow-up, as well as the timing and circumstances, are variable depending upon the specifics of your emergency department visit. If you don't have a primary care physician on staff, we will provide you with a referral. We always advise you to contact your personal physician following an emergency department visit to inform them of the circumstance of the visit and for follow-up with them and/or the need for any referrals to a consulting specialist. The emergency department will also refer you to a specialist when appropriate. This referral assures that you have the opportunity for follow-up care with a specialist. All of these measure are taken in an effort to provide you with optimal care, which includes your follow-up. Under all circumstances we always encourage you to contact your private physician who remains a resource for coordinating your care. When calling for follow-up care, please make the office aware that this follow-up is from your recent emergency room visit. If for any reason you are refused follow-up, please contact the [facility] Emergency Department at and asked to speak to the emergency department charge nurse. We're your boot your recent ankle fracture for the next week, ibuprofen, elevate and ice follow-up or so as needed [facility] Special[facility] - [facility] Professional Building [address] [place] [address], [address] [place] [address]
== END 2018-04-08 11:59 | disposition home or self-care (01) ==
LOC: MW.ED 10:27
DX: S93.401A Sprain of unspecified ligament of right ankle, initial encounter (principal); Z79.899 Other long term (current) drug therapy; Z88.8 Allergy status to other drugs, medicaments and biological substances; X50.0XXA Overexertion from strenuous movement or load, initial encounter
CPT/HCPCS: 73610-26-RT; 73610-RT; 99283

== ENCOUNTER 2019-05-06 11:31 | Emergency (ER) | payer BC, MEDICAID ==
--- NOTE | 2019-05-06 11:41 | EDM.PDOC ---
ED HPI GENERAL MEDICAL PROBLEM - General Stated Complaint: FLU Time Seen by Provider: 05/06/19 11:35 Source of Information: Reports: Patient History Limitations: Reports: No Limitations - History of Present Illness INITIAL COMMENTS - FREE TEXT/NARRATIVE: HISTORY AND PHYSICAL: History of present illness: Patient is a 43-year-old female presenting to the emergency room or see her complaints of "headache and nausea since Saturday". Patient states she has been nauseous and has had a constant dull headache since Saturday that she rates at 10 out of 10 in pain currently. Patient states headache is "in the front and the back of my head". She denies photo sensitivity, auras or noise sensitivity. Alleviating factors including putting pressure on her head. She denies aggravating factors. She informed me that her last headache was about 6 months ago. Patient states she has been nauseous since Saturday and has been unable to keep food down she has been vomiting for the past couple days. Patient denies any fever, chills, change in vision, syncope or near syncope. Denies any chest pain, back pain, shortness of breath or cough. Denies any abdominal pain, diarrhea, constipation or dysuria. Denies any chance of . Has not noted any blood in urine or stool. Patient has been eating and drinking appropriately. Review of systems: As per history of present illness and below otherwise all systems reviewed and negative. Past medical history: As per history of present illness and as reviewed below otherwise noncontributory. Surgical history: As per history of present illness and as reviewed below otherwise noncontributory. Social history: See social history for further information Family history: As per history of present illness and as reviewed below otherwise noncontributory. Physical exam: General: Patient is a well-nourished and well-developed 23-year-old female. Alert and oriented. Nontoxic in appearance and in no acute distress. Vital signs are stable and have been reviewed by me. HEENT: Atraumatic, normocephalic, pupils equal and reactive bilaterally, negative for conjunctival pallor or scleral icterus, mucous membranes moist, TMs normal bilaterally, throat clear, neck supple, nontender, trachea midline. No drooling or trismus noted. No meningeal signs. No hot potato voice noted. Lungs: Clear to auscultation, breath sounds equal bilaterally, chest nontender. Heart: S1S2, regular rate and rhythm without overt murmur Abdomen: Soft, nondistended, nontender. Negative for masses or hepatosplenomegaly. Negative for costovertebral tenderness. Skin: Intact, warm, dry. No lesions or rashes noted. Extremities: Atraumatic, moves all extremities per self without difficulty or deficits, negative for cords or calf pain. Neurovascular unremarkable. Neuro: Awake, alert, oriented. Cranial nerves II through XII unremarkable. Cerebellum unremarkable. Motor and sensory unremarkable throughout. Exam nonfocal. Notes: Lab work and had imaging are unremarkable. The head CT does show some thickening of the sinus cavities Patient does have improvement with IV fluids and medications. Supportive care measures were reviewed and discussed. Voices understanding and is agreeable to plan of care. Denies any further questions or concerns at this time. Diagnostics: CBC, CMP, CT head without contrast Therapeutics: IV fluids, Zofran, Toradol Prescription: Zofran (#6) Impression: Sinusitis Headache Viral Illness Plan: 1. Please use Tylenol and/or Ibuprofen as needed for pain and fever management. 2. Get plenty of Rest. Encourage fluids to prevent dehydration. 3. Please follow up with your primary care provider. Return to the ED as needed as discussed. Definitive disposition and diagnosis as appropriate pending reevaluation and review of above. Headache Pain Score (Numeric/FACES): 10 - Related Data Allergies Allergy/AdvReac Type Severity Reaction Status Date / Time albuterol Allergy Rash Verified 05/06/19 11:42 bupropion HCl Allergy Rash Verified 05/06/19 11:42 [From Wellbutrin] nickel Allergy Rash Verified 05/06/19 11:42 onion Allergy Swelling Verified 05/06/19 11:42 prochlorperazine edisylate Allergy Paralysis Verified 05/06/19 11:42 [From Compazine] prochlorperazine maleate Allergy Paralysis Verified 05/06/19 11:42 [From Compazine] Home Meds: Home Meds Hydroxychloroquine [Plaquenil] 200 mg DAILY 04/08/18 [History] Benzonatate 200 mg PO TID PRN 05/06/19 [History] Cevimeline HCl 1 tab TID 05/06/19 [History] Escitalopram [Lexapro] 10 mg PO DAILY 05/06/19 [History] Estradiol 1 mg PO DAILY 05/06/19 [History] Meloxicam [Mobic] 7.5 mg PO DAILY 05/06/19 [History] Ondansetron [Zofran ODT] 4 mg PO Q6H PRN #6 tab.dis 05/06/19 [Rx] Pioglitazone [Actos] 15 mg PO DAILY 05/06/19 [History] Past Medical History HEENT History: Reports: Other (See Below) Other HEENT History: wears glasses Cardiovascular History: Reports: Other (See Below) Gastrointestinal History: Reports: Chronic Constipation Genitourinary History: Reports: Other (See Below) Other Genitourinary History: potassium low in last blood draw [employer] History: Reports: Endometriosis, , Spontaneous Musculoskeletal History: Reports: Arthritis, Fracture Other Musculoskeletal History: states hx of fx to left ankle x7 and left wrist x3 Neurological History: Reports: Migraines, Other (See Below) Other Neuro History: Fibromyalgia Endocrine/Metabolic History: Reports: Obesity/BMI 30+ Hematologic History: Reports: B12 Deficiency, Other (See Below) Other Hematologic History: vitamin D deficiency Immunologic History: Reports: Other (See Below) Other Immunologic History: lupus Dermatologic History: Reports: None - Infectious Disease History Infectious Disease History: Reports: None - Past Surgical History Head Surgeries/Procedures: Reports: None Cardiovascular Surgical History: Reports: None GI Surgical History: Reports: Cholecystectomy, Colonoscopy, Hernia, Abdominal Female Surgical History: Reports: D&C, Hysterectomy, Salpingo-Oophorectomy, Tubal Ligation Other Female Surgeries/Procedures: laparotomy with oophorectomy, Social & Family History - Family History Family Medical History: Noncontributory HEENT: Reports: Cataract, Glaucoma, Otitis Media Cardiac: Reports: [place], Other (See Below) Other Cardiac Family History: "heart disease" Respiratory: Reports: Asthma : Reports: Dialysis Musculoskeletal: Reports: Other (See Below) Other Musculoskeletal Family History: scoliosis Neurological: Reports: Alzheimers Disease, CVA, Dementia, Migraines Psychiatric: Reports: Bipolar, Depression Endocrine/Metabolic: Reports: Diabetes, Type I, Diabetes, type II Hematologic: Reports: Anemia Oncologic: Reports: Breast, Cervix, Colon, Hodgkin's Lymphoma, Lung, Other (See Below) Other Oncologic Family History: stomach - Caffeine Use Caffeine Use: Reports: Tea ED ROS GENERAL - Review of Systems Review Of Systems: ROS reveals no pertinent complaints other than HPI. ED EXAM, GENERAL - Physical Exam Exam: See Below (See dictation) Course - Vital Signs Last Recorded V/S: Last Vital Signs Temp 97.0 F 05/06/19 11:38 Pulse 65 05/06/19 11:38 Resp 20 05/06/19 11:38 BP 133/67 05/06/19 11:38 Pulse Ox 99 05/06/19 11:38 - Orders/Labs/Meds Orders: Active Orders 24 hr Category Date Time Status COMPREHENSIVE METABOLIC PN,CMP [CHEM] Stat Lab 05/06/19 12:10 Received Labs: Laboratory Tests 05/06/19 Range/Units 12:10 WBC 7.14 (4.0-11.0) K/uL RBC 4.95 (4.30-5.90) M/uL Hgb 13.5 (12.0-16.0) g/dL Hct 41.5 (36.0-46.0) % MCV 83.8 (80.0-98.0) fL MCH 27.3 (27.0-32.0) pg MCHC 32.5 (31.0-37.0) g/dL RDW Std Deviation 43.1 (28.0-62.0) fl RDW Coeff of Maged 14 (11.0-15.0) % Plt Count 274 (150-400) K/uL MPV 9.50 (7.40-12.00) fL Neut % (Auto) 61.3 (48.0-80.0) % Lymph % (Auto) 27.5 (16.0-40.0) % [place] % (Auto) 7.3 (0.0-15.0) % Eos % (Auto) 3.5 (0.0-7.0) % Baso % (Auto) 0.4 (0.0-1.5) % Neut # (Auto) 4.4 (1.4-5.7) K/uL Lymph # (Auto) 2.0 (0.6-2.4) K/uL [place] # (Auto) 0.5 (0.0-0.8) K/uL Eos # (Auto) 0.3 (0.0-0.7) K/uL Baso # (Auto) 0.0 (0.0-0.1) K/uL Nucleated RBC % 0.0 /100WBC Nucleated RBCs # 0 K/uL Meds: Medications Discontinued Medications Generic Name Dose Route Start Last Admin Trade Name Freq PRN Reason Stop Dose Admin Sodium Chloride 1,000 mls @ 999 mls/hr 05/06/19 11:53 05/06/19 12:12 Normal Saline IV 05/06/19 12:53 999 mls/hr STAT ONE Administration Ketorolac Tromethamine 30 mg 05/06/19 11:53 05/06/19 12:12 Toradol IVPUSH 05/06/19 11:54 30 mg ONETIME ONE Administration Ondansetron HCl 4 mg 05/06/19 11:53 05/06/19 12:12 Zofran IVPUSH 05/06/19 11:54 4 mg ONETIME ONE Administration Departure - Departure Time of Disposition: 12:57 Disposition: Home, Self-Care 01 Clinical Impression: Viral illness Headache Qualifiers: Headache type: unspecified Headache chronicity pattern: episodic headache Intractability: not intractable Qualified Code(s): R51 - Headache Sinusitis Qualifiers: Sinusitis location: other Chronicity: unspecified Qualified Code(s): J32.9 - Chronic sinusitis, unspecified - Discharge Information Prescriptions: Ondansetron [Zofran ODT] 4 mg PO Q6H PRN #6 tab.dis PRN Reason: Nausea Referrals: PCP,Unknown [Primary Care Provider] - Additional Instructions: The following information is given to patients seen in the emergency department who are being discharged to home. This information is to outline your options for follow-up care. We provide all patients seen in our emergency department with a follow-up referral. The need for follow-up, as well as the timing and circumstances, are variable depending upon the specifics of your emergency department visit. If you don't have a primary care physician on staff, we will provide you with a referral. We always advise you to contact your personal physician following an emergency department visit to inform them of the circumstance of the visit and for follow-up with them and/or the need for any referrals to a consulting specialist. The emergency department will also refer you to a specialist when appropriate. This referral assures that you have the opportunity for follow-up care with a specialist. All of these measure are taken in an effort to provide you with optimal care, which includes your follow-up. Under all circumstances we always encourage you to contact your private physician who remains a resource for coordinating your care. When calling for follow-up care, please make the office aware that this follow-up is from your recent emergency room visit. If for any reason you are refused follow-up, please contact the [facility] Emergency Department at and asked to speak to the emergency department charge nurse. [facility] [address] [place] [address] [place] [address] 1. Please use Tylenol and/or Ibuprofen as needed for pain and fever management. 2. Get plenty of Rest. Encourage fluids to prevent dehydration. 3. Please follow up with your primary care provider. Return to the ED as needed as discussed. - My Orders Last 24 Hours: My Active Orders 05/06/19 12:10 COMPREHENSIVE METABOLIC PN,CMP [CHEM] Stat - Assessment/Plan Last 24 Hours: My Active Orders 05/06/19 12:10 COMPREHENSIVE METABOLIC PN,CMP [CHEM] Stat
[2019-05-06] MEDS ORDERED: Ondansetron 4 MG/2 ML SDV IVPUSH ONE (11:53)
[2019-05-06] MEDS ORDERED: Ketorolac 30 MG/ML SDV IVPUSH ONE (11:53)
[2019-05-06] MEDS ORDERED: Sodium Chloride 0.9% 1,000 ML IV ONE (11:53)
--- NOTE | 2019-05-06 12:49 | CT ---
Head CT Technique: Multiple axial sections through the brain were obtained. Intravenous contrast was not utilized. Comparison: No previous intracranial imaging. Findings: Ventricles along with basal cisterns and sulci over convexities are within normal limits for the patient's age. No abnormal parenchymal densities are seen. No evidence of intracranial hemorrhage. No midline shift or mass effect is seen. No acute calvarial abnormality is seen. Mild areas of mucosal thickening are seen within the ethmoid sinuses as well as minimal mucosal thickening within the maxillary and right frontal sinus. Mild mucosal thickening is seen within the sphenoid sinuses. Impression: 1. Mucosal thickening within the paranasal sinuses which is most likely chronic. 2. No acute intracranial abnormality is appreciated. Diagnostic code #2 MTDD
[2019-05-06 12:54] LABS: BLOOD UREA NITROGEN,BUN 9 mg/dL (7.0-18.0); CARBON DIOXIDE,CO2 25.3 mmol/L (21.0-32.0); CHLORIDE,CL 105 mmol/L (98-107); GLUCOSE RANDOM 117 mg/dL (74-106); POTASSIUM,K 3.8 mmol/L (3.5-5.1); SODIUM,NA 140 mmol/L (136-145)
[2019-05-06 13:59] VITALS: BP 125/56; PULSE 61
== END 2019-05-06 13:20 | disposition home or self-care (01) ==
LOC: MW.ED 11:31
DX: B34.9 Viral infection, unspecified (principal); J32.9 Chronic sinusitis, unspecified; E66.9 Obesity, unspecified; Z68.34 Body mass index [BMI] 34.0-34.9, adult; Z88.8 Allergy status to other drugs, medicaments and biological substances; Z91.048 Other nonmedicinal substance allergy status; Z91.018 Allergy to other foods
CPT/HCPCS: 36415; 70450; 80053; 85025; 96361; 96374; 96375; 99284; J1885; J2405; J7040

== ENCOUNTER 2020-02-20 19:19 | Emergency (ER) | payer BC ==
[2020-02-20] MEDS ORDERED: Morphine 4 MG/ML Syringe IVPUSH ONE (19:42)
[2020-02-20] MEDS ORDERED: Sodium Chloride 0.9% 1,000 ML IV ONE (19:42)
--- NOTE | 2020-02-20 19:42 | EDM.PDOC ---
ED HPI GENERAL MEDICAL PROBLEM - General Chief Complaint: Abdominal Pain Stated Complaint: possible appendix Time Seen by Provider: 02/20/20 19:34 Source of Information: Reports: Patient History Limitations: Reports: No Limitations - History of Present Illness INITIAL COMMENTS - FREE TEXT/NARRATIVE: HISTORY AND PHYSICAL: History of present illness: Patient is a 44-year-old female who presents to the emergency room with complaints of right lower quadrant pain started this morning. She states approximately 3 days ago she did have one episode of bleeding that she felt came from the vagina. She noticed it on the toilet paper if she was wiping. This was odd to her as she has had a hysterectomy and has not had bleeding in several years. After the one episode this stopped. She has felt well since. This morning she woke up with right lower quadrant pain which she feels as a sharp squeezing pain like someone is pulling down on her "appendix". Patient denies any fever, chills, headache, change in vision, syncope or near syncope. Denies any chest pain, back pain, shortness of breath or cough. Denies any nausea, vomiting, diarrhea, constipation or dysuria. Has not noted any blood in urine or stool. Patient has been eating and drinking appropriately. Review of systems: As per history of present illness and below otherwise all systems reviewed and negative. Past medical history: As per history of present illness and as reviewed below otherwise noncontributory. Surgical history: As per history of present illness and as reviewed below otherwise noncontribut ory. Social history: See social history for further information Family history: As per history of present illness and as reviewed below otherwise noncontributory. Physical exam: General: Well-developed and well-nourished 44-year-old female. Alert and oriented. Nontoxic-appearing and in no acute distress. HEENT: Atraumatic, normocephalic, pupils equal and reactive bilaterally, negative for conjunctival pallor or scleral icterus, mucous membranes moist, trachea midline. No drooling or trismus noted. No meningeal signs. No hot potato voice noted. Lungs: Clear to auscultation, breath sounds equal bilaterally. Heart: S1S2, regular rate and rhythm without overt murmur Abdomen: Soft, nondistended, RLQ tenderness with rebound tenderness. Negative for masses or hepatosplenomegaly. Negative for costovertebral tenderness. Pelvis: Stable nontender. Skin: Intact, warm, dry. No lesions or rashes noted. Extremities: Atraumatic, moves all extremities per self without difficulty or deficits, negative for cords or calf pain. Neurovascular unremarkable. Neuro: Awake, alert, oriented. Cranial nerves II through XII unremarkable. Cerebellum unremarkable. Motor and sensory unremarkable throughout. Exam nonfocal. Notes: Patient's lab work is unremarkable. There is nothing acute appreciated on CT. They are unable to fully visualize the appendix but there is no bowel wall thickening, stranding or inflammatory changes. I did share these findings with the patient. We discussed the need for close follow-up with her FACILITIES ASSISTANT and/or primary care provider. We discussed signs and symptoms that would prompt her to return to the emergency room. She states her pain has greatly improved and she is comfortable with discharge. Supportive care measures were reviewed and discussed. Voices understanding and is agreeable to plan of care. Denies any further questions or concerns at this time. Diagnostics: CBC, CMP, UA, HCGU, CT abd/pelvis Therapeutics: IV fluids, Morphine Prescription: None Impression: Abdominal Pain Plan: 1. Your lab work was normal today. The CT showed no acute findings, although the appendix was not fully visualized. As we discussed if you continue to have abdominal pain, pain worsens or new symptoms develop please return to the emergency room for reevaluation. 2. You may alternate Tylenol and ibuprofen as needed for pain management. 3. Follow-up with your FACILITIES ASSISTANT if you continue to have any breakthrough vaginal bleeding. 4. Into the ED as needed and as discussed. Definitive disposition and diagnosis as appropriate pending reevaluation and review of above. RLQ pain Pain Score (Numeric/FACES): 8 - Related Data Allergies Allergy/AdvReac Type Severity Reaction Status Date / Time albuterol Allergy Rash Verified 02/20/20 20:08 bupropion HCl Allergy Rash Verified 02/20/20 20:08 [From Wellbutrin] nickel Allergy Rash Verified 02/20/20 20:08 onion Allergy Swelling Verified 02/20/20 20:08 prochlorperazine edisylate Allergy Paralysis Verified 02/20/20 20:08 [From Compazine] prochlorperazine maleate Allergy Paralysis Verified 02/20/20 20:08 [From Compazine] Home Meds: Home Meds Hydroxychloroquine [Plaquenil] 200 mg PO DAILY 04/08/18 [History] Pioglitazone [Actos] 15 mg PO DAILY 05/06/19 [History] estradioL [Estradiol] 1 mg PO DAILY 05/06/19 [History] Phentermine/Topiramate [Qsymia 11.25 mg-69 mg Capsule] 1 tab PO DAILY 02/20/20 [History] hydrOXYzine pamoate [Hydroxyzine Pamoate] 50 mg PO DAILY 02/20/20 [History] Past Medical History HEENT History: Reports: Other (See Below) Other HEENT History: wears glasses Cardiovascular History: Reports: Other (See Below) Gastrointestinal History: Reports: Chronic Constipation Genitourinary History: Reports: Other (See Below) Other Genitourinary History: potassium low in last blood draw FACILITIES ASSISTANT History: Reports: Endometriosis, , Spontaneous Musculoskeletal History: Reports: Arthritis, Fracture Other Musculoskeletal History: states hx of fx to left ankle x7 and left wrist x3 Neurological History: Reports: Migraines, Other (See Below) Other Neuro History: Fibromyalgia Endocrine/Metabolic History: Reports: Obesity/BMI 30+ Hematologic History: Reports: B12 Deficiency, Other (See Below) Other Hematologic History: vitamin D deficiency Immunologic History: Reports: Other (See Below) Other Immunologic History: lupus Dermatologic History: Reports: None - Infectious Disease History Infectious Disease History: Reports: None - Past Surgical History Head Surgeries/Procedures: Reports: None Cardiovascular Surgical History: Reports: None GI Surgical History: Reports: Cholecystectomy, Colonoscopy, Hernia, Abdominal Female Surgical History: Reports: D&C, Hysterectomy, Salpingo-Oophorectomy, Tubal Ligation Other Female Surgeries/Procedures: laparotomy with oophorectomy, Social & Family History - Family History Family Medical History: Noncontributory HEENT: Reports: Cataract, Glaucoma, Otitis Media Cardiac: Reports: MO, Other (See Below) Other Cardiac Family History: "heart disease" Respiratory: Reports: Asthma : Reports: Dialysis Musculoskeletal: Reports: Other (See Below) Other Musculoskeletal Family History: scoliosis Neurological: Reports: Alzheimers Disease, CVA, Dementia, Migraines Psychiatric: Reports: Bipolar, Depression Endocrine/Metabolic: Reports: Diabetes, Type I, Diabetes, type II Hematologic: Reports: Anemia Oncologic: Reports: Breast, Cervix, Colon, Hodgkin's Lymphoma, Lung, Other (See Below) Other Oncologic Family History: stomach - Caffeine Use Caffeine Use: Reports: Tea ED ROS GENERAL - Review of Systems Review Of Systems: Comprehensive ROS is negative, except as noted in HPI. ED EXAM, GI/ABD - Physical Exam Exam: See Below (See dictation) Course - Vital Signs Last Recorded V/S: Last Vital Signs Temp 96.1 F L 02/20/20 19:23 Pulse 74 02/20/20 19:23 Resp 18 02/20/20 19:23 BP 124/73 02/20/20 19:23 Pulse Ox 99 02/20/20 19:23 - Orders/Labs/Meds Labs: Laboratory Tests 02/20/20 02/20/20 02/20/20 Range/Units 19:50 19:50 19:50 WBC 9.07 (4.0-11.0) K/uL RBC 4.72 (4.30-5.90) M/uL Hgb 13.1 (12.0-16.0) g/dL Hct 40.5 (36.0-46.0) % MCV 85.8 (80.0-98.0) fL MCH 27.8 (27.0-32.0) pg MCHC 32.3 (31.0-37.0) g/dL RDW Std Deviation 43.4 (28.0-62.0) fl RDW Coeff of Maged 14 (11.0-15.0) % Plt Count 303 (150-400) K/uL MPV 9.30 (7.40-12.00) fL Neut % (Auto) 66.2 (48.0-80.0) % Lymph % (Auto) 23.7 (16.0-40.0) % Island % (Auto) 7.8 (0.0-15.0) % Eos % (Auto) 2.1 (0.0-7.0) % Baso % (Auto) 0.2 (0.0-1.5) % Neut # (Auto) 6.0 H (1.4-5.7) K/uL Lymph # (Auto) 2.2 (0.6-2.4) K/uL Island # (Auto) 0.7 (0.0-0.8) K/uL Eos # (Auto) 0.2 (0.0-0.7) K/uL Baso # (Auto) 0.0 (0.0-0.1) K/uL Nucleated RBC % 0.0 /100WBC Nucleated RBCs # 0 K/uL Sodium (136-145) mmol/L Potassium (3.5-5.1) mmol/L Chloride (98-107) mmol/L Carbon Dioxide (21.0-32.0) mmol/L BUN (7.0-18.0) mg/dL Creatinine (0.6-1.0) mg/dL Est Cr Clr Drug Dosing mL/min Estimated GFR (MDRD) ml/min Glucose (74-106) mg/dL Calcium (8.5-10.1) mg/dL Total Bilirubin (0.2-1.0) mg/dL AST (15-37) IU/L ALT (14-63) IU/L Alkaline Phosphatase (46-116) U/L Total Protein (6.4-8.2) g/dL Albumin (3.4-5.0) g/dL Globulin (2.6-4.0) g/dL Albumin/Globulin Ratio (0.9-1.6) Urine Color YELLOW Urine Appearance SLT CLOUDY Urine pH 7.0 (5.0-8.0) Ur Specific [place] 1.025 (1.001-1.035) Urine Protein NEGATIVE (NEGATIVE) mg/dL Urine Glucose (UA) NEGATIVE (NEGATIVE) mg/dL Urine Ketones NEGATIVE (NEGATIVE) mg/dL Urine Occult Blood NEGATIVE (NEGATIVE) Urine Nitrite NEGATIVE (NEGATIVE) Urine Bilirubin NEGATIVE (NEGATIVE) Urine Urobilinogen 0.2 (<2.0) EU/dL Ur Leukocyte Esterase NEGATIVE (NEGATIVE) Urine HCG, Qual NEGATIVE (NEGATIVE) 02/20/20 Range/Units 19:50 WBC (4.0-11.0) K/uL RBC (4.30-5.90) M/uL Hgb (12.0-16.0) g/dL Hct (36.0-46.0) % MCV (80.0-98.0) fL MCH (27.0-32.0) pg MCHC (31.0-37.0) g/dL RDW Std Deviation (28.0-62.0) fl RDW Coeff of Maged (11.0-15.0) % Plt Count (150-400) K/uL MPV (7.40-12.00) fL Neut % (Auto) (48.0-80.0) % Lymph % (Auto) (16.0-40.0) % Island % (Auto) (0.0-15.0) % Eos % (Auto) (0.0-7.0) % Baso % (Auto) (0.0-1.5) % Neut # (Auto) (1.4-5.7) K/uL Lymph # (Auto) (0.6-2.4) K/uL Island # (Auto) (0.0-0.8) K/uL Eos # (Auto) (0.0-0.7) K/uL Baso # (Auto) (0.0-0.1) K/uL Nucleated RBC % /100WBC Nucleated RBCs # K/uL Sodium 141 (136-145) mmol/L Potassium 3.8 (3.5-5.1) mmol/L Chloride 107 (98-107) mmol/L Carbon Dioxide 27.3 (21.0-32.0) mmol/L BUN 11 (7.0-18.0) mg/dL Creatinine 0.9 (0.6-1.0) mg/dL Est Cr Clr Drug Dosing 70.28 mL/min Estimated GFR (MDRD) > 60.0 ml/min Glucose 89 (74-106) mg/dL Calcium 8.4 L (8.5-10.1) mg/dL Total Bilirubin 0.3 (0.2-1.0) mg/dL AST 12 L (15-37) IU/L ALT 21 (14-63) IU/L Alkaline Phosphatase 79 (46-116) U/L Total Protein 7.2 (6.4-8.2) g/dL Albumin 3.8 (3.4-5.0) g/dL Globulin 3.4 (2.6-4.0) g/dL Albumin/Globulin Ratio 1.1 (0.9-1.6) Urine Color Urine Appearance Urine pH (5.0-8.0) Ur Specific [place] (1.001-1.035) Urine Protein (NEGATIVE) mg/dL Urine Glucose (UA) (NEGATIVE) mg/dL Urine Ketones (NEGATIVE) mg/dL Urine Occult Blood (NEGATIVE) Urine Nitrite (NEGATIVE) Urine Bilirubin (NEGATIVE) Urine Urobilinogen (<2.0) EU/dL Ur Leukocyte Esterase (NEGATIVE) Urine HCG, Qual (NEGATIVE) Meds: Medications Discontinued Medications Generic Name Dose Route Start Last Admin Trade Name Natalya PRN Reason Stop Dose Admin Sodium Chloride 1,000 mls @ 999 mls/hr 02/20/20 19:42 02/20/20 20:26 Normal Saline IV 02/20/20 20:42 999 mls/hr STAT ONE Administration Iopamidol 100 ml 02/20/20 21:04 02/20/20 21:05 [id number] (76%) IVPUSH 02/20/20 21:05 100 ml ONETIME ONE Administration Morphine Sulfate 4 mg 02/20/20 19:42 02/20/20 20:26 Morphine IVPUSH 02/20/20 19:43 4 mg ONETIME ONE Administration Departure - Departure Time of Disposition: 21:42 Disposition: Home, Self-Care 01 Clinical Impression: Abdominal pain Qualifiers: Abdominal location: right lower quadrant Qualified Code(s): R10.31 - Right lower quadrant pain - Discharge Information Instructions: Abdominal Pain, Adult, [id number] Referrals: PCP,None [Primary Care Provider] - Forms: ED Department Discharge Additional Instructions: The following information is given to patients seen in the emergency department who are being discharged to home. This information is to outline your options for follow-up care. We provide all patients seen in our emergency department with a follow-up referral. The need for follow-up, as well as the timing and circumstances, are variable depending upon the specifics of your emergency department visit. If you don't have a primary care physician on staff, we will provide you with a referral. We always advise you to contact your personal physician following an emergency department visit to inform them of the circumstance of the visit and for follow-up with them and/or the need for any referrals to a consulting specialist. The emergency department will also refer you to a specialist when appropriate. This referral assures that you have the opportunity for follow-up care with a specialist. All of these measure are taken in an effort to provide you with optimal care, which includes your follow-up. Under all circumstances we always encourage you to contact your private physician who remains a resource for coordinating your care. When calling for follow-up care, please make the office aware that this follow-up is from your recent emergency room visit. If for any reason you are refused follow-up, please contact the [facility] Emergency Department at and asked to speak to the emergency department charge nurse. [facility] [address] [place] [address] [facility] [address] [place] [address] Thank you for choosing the [facility] emergency department in [place] for your medical needs today. It was a pleasure caring for you. You were seen in the emergency department for abdominal pain. 1. Your lab work was normal today. The CT showed no acute findings, although the appendix was not fully visualized. As we discussed if you continue to have abdominal pain, pain worsens or new symptoms develop please return to the emergency room for reevaluation. 2. You may alternate Tylenol and ibuprofen as needed for pain management. 3. Follow-up with your FACILITIES ASSISTANT if you continue to have any breakthrough vaginal bleeding. 4. Into the ED as needed and as discussed. Sepsis Event Note (ED) - Focused Exam Vital Signs: Vital Signs Temp Pulse Resp BP Pulse Ox 02/20/20 19:23 96.1 F L 74 18 124/73 99
[2020-02-20 20:53] LABS: BLOOD UREA NITROGEN,BUN 11 mg/dL (7.0-18.0); CARBON DIOXIDE,CO2 27.3 mmol/L (21.0-32.0); CHLORIDE,CL 107 mmol/L (98-107); GLUCOSE RANDOM 89 mg/dL (74-106); POTASSIUM,K 3.8 mmol/L (3.5-5.1); SODIUM,NA 141 mmol/L (136-145)
[2020-02-20] MEDS ORDERED: Iopamidol 755 Mg/ML 100 ML Bottle IVPUSH ONE (21:04)
--- NOTE | 2020-02-20 21:35 | CT ---
CT abdomen and pelvis Technique: Multiple axial sections were obtained from above the dome of the diaphragm inferiorly through the pubic symphysis. Intravenous contrast was utilized. No oral contrast has been given. Comparison: No prior intracranial imaging is available. Findings: Visualized lung bases show nothing acute. Liver contains no focal parenchymal abnormality. Surgical clips are seen from previous cholecystectomy. Spleen appears normal. Adrenal glands show no nodule. Pancreas is within normal limits. Kidneys show symmetric contrast enhancement without hydronephrosis or mass. Contrast seen within the ureters as well as bladder. Aorta shows mild atherosclerotic calcification without aneurysm. No retroperitoneal adenopathy or mesenteric abnormalities are seen. No pelvic mass or adenopathy is identified. Appendix not visualized with certainty. No bowel wall thickening is appreciated. No free fluid or inflammatory change is appreciated. 2.1 cm cyst is noted within the left ovary. Bone window settings were reviewed. Slight scoliosis is noted within the spine. Minimal degenerative change is noted primarily within the mid and lower thoracic spine. No acute osseous finding is appreciated. Impression: 1. Nothing acute is appreciated on CT study of the abdomen and pelvis. Diagnostic code #2 This report was dictated in MDT
[2020-02-20 21:59] VITALS: BP 138/69; PULSE 60
== END 2020-02-20 21:50 | disposition home or self-care (01) ==
LOC: MW.ED 19:19
DX: R10.31 Right lower quadrant pain (principal); N93.9 Abnormal uterine and vaginal bleeding, unspecified; E66.9 Obesity, unspecified; Z88.8 Allergy status to other drugs, medicaments and biological substances; Z91.018 Allergy to other foods; Z91.048 Other nonmedicinal substance allergy status; Z79.899 Other long term (current) drug therapy; Z98.51 Tubal ligation status; Z90.710 Acquired absence of both cervix and uterus; Z90.49 Acquired absence of other specified parts of digestive tract; Z98.890 Other specified postprocedural states; Z68.34 Body mass index [BMI] 34.0-34.9, adult
CPT/HCPCS: 36415; 74177; 80053; 81003; 81025; 85025; 96374; 99284; J2270; J7030; Q9967

== ENCOUNTER 2021-07-24 10:59 | Emergency (ER) | payer BC ==
[2021-07-24] MEDS ORDERED: Metoclopramide 10 MG/2 ML SDV IVPUSH ONE (11:12)
[2021-07-24] MEDS ORDERED: diphenhydrAMINE 50 MG/ML SDV IVPUSH ONE (11:12)
--- NOTE | 2021-07-24 11:17 | EDM.PDOC ---
ED HPI GENERAL MEDICAL PROBLEM - General Chief Complaint: Neuro Symptoms/Deficits Stated Complaint: NUMBNESS IN ARM HEADACHE Time Seen by Provider: 07/24/21 11:01 Source of Information: Reports: Patient History Limitations: Reports: No Limitations - History of Present Illness INITIAL COMMENTS - FREE TEXT/NARRATIVE: Is a 45-year-old female history of migraines presents today for headache is lasting longer than normal with some left arm right foot numbness and also some jaws numbness as well. Her numbness does not follow any distribution. She denies any vision changes eating weakness in extremities any chest pain fever chills or any direct blows or history of head. Headache Pain Score (Numeric/FACES): 9 - Related Data Allergies Allergy/AdvReac Type Severity Reaction Status Date / Time albuterol Allergy Rash Verified 07/24/21 11:10 bupropion HCl Allergy Rash Verified 07/24/21 11:10 [From Wellbutrin] nickel Allergy Rash Verified 07/24/21 11:10 onion Allergy Swelling Verified 07/24/21 11:10 prochlorperazine edisylate Allergy Paralysis Verified 07/24/21 11:10 [From Compazine] prochlorperazine maleate Allergy Paralysis Verified 07/24/21 11:10 [From Compazine] Home Meds: Home Meds hydrOXYzine pamoate [Hydroxyzine Pamoate] 50 mg PO DAILY 02/20/20 [History] Amitriptyline [Elavil] 25 mg PO DAILY 07/24/21 [History] SUMAtriptan [Imitrex] 100 mg PO DAILY 07/24/21 [History] Semaglutide [Rybelsus] 1 dose PO DAILY 07/24/21 [History] traMADol [Ultram] 50 mg PO DAILY 07/24/21 [History] Past Medical History HEENT History: Reports: Other (See Below) Other HEENT History: wears glasses Cardiovascular History: Reports: Other (See Below) Gastrointestinal History: Reports: Chronic Constipation Genitourinary History: Reports: Other (See Below) Other Genitourinary History: potassium low in last blood draw 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: Endometriosis, , Spontaneous Musculoskeletal History: Reports: Arthritis, Fracture Other Musculoskeletal History: states hx of fx to left ankle x7 and left wrist x3 Neurological History: Reports: Migraines, Other (See Below) Other Neuro History: Fibromyalgia Endocrine/Metabolic History: Reports: Obesity/BMI 30+ Hematologic History: Reports: B12 Deficiency, Other (See Below) Other Hematologic History: vitamin D deficiency Immunologic History: Reports: Other (See Below) Other Immunologic History: lupus Dermatologic History: Reports: None - Infectious Disease History Infectious Disease History: Reports: None - Past Surgical History Head Surgeries/Procedures: Reports: None HEENT Surgical History: Reports: None Other HEENT Surgeries/Procedures: shograine Cardiovascular Surgical History: Reports: None GI Surgical History: Reports: Cholecystectomy, Colonoscopy, Hernia, Abdominal Other GI Surgeries/Procedures: umbilical hernia surgery Female Surgical History: Reports: D&C, Hysterectomy, Salpingo-Oophorectomy, Tubal Ligation Other Female Surgeries/Procedures: laparotomy with oophorectomy, Musculoskeletal Surgical History: Reports: Carpal Tunnel Social & Family History - Family History Family Medical History: No Pertinent Family History HEENT: Reports: Cataract, Glaucoma, Otitis Media Cardiac: Reports: GA, Other (See Below) Other Cardiac Family History: "heart disease" Respiratory: Reports: Asthma : Reports: Dialysis Musculoskeletal: Reports: Other (See Below) Other Musculoskeletal Family History: scoliosis Neurological: Reports: Alzheimers Disease, CVA, Dementia, Migraines Psychiatric: Reports: Bipolar, Depression Endocrine/Metabolic: Reports: Diabetes, Type I, Diabetes, type II Hematologic: Reports: Anemia Oncologic: Reports: Breast, Cervix, Colon, Hodgkin's Lymphoma, Lung, Other (See Below) Other Oncologic Family History: stomach - Caffeine Use Caffeine Use: Reports: Tea ED ROS GENERAL - Review of Systems Review Of Systems: See Below Constitutional: Reports: No Symptoms HEENT: Reports: No Symptoms Respiratory: Reports: No Symptoms Cardiovascular: Reports: No Symptoms Endocrine: Reports: No Symptoms GI/Abdominal: Reports: No Symptoms : Reports: No Symptoms Musculoskeletal: Reports: No Symptoms Skin: Reports: No Symptoms Neurological: Reports: Headache, Numbness Psychiatric: Reports: No Symptoms Hematologic/Lymphatic: Reports: No Symptoms Immunologic: Reports: No Symptoms - Physical Exam Exam: See Below Exam Limited By: No Limitations General Appearance: Alert, WD/WN, No Apparent Distress Eye Exam: Bilateral Eye: EOMI, PERRL Throat/Mouth: Normal Inspection Head Exam: Atraumatic, Normocephalic Neck: Normal Inspection Respiratory/Chest: No Respiratory Distress, Lungs Clear, Normal Breath Sounds Cardiovascular: Normal Peripheral Pulses, Regular Rate, Rhythm GI/Abdominal: Normal Bowel Sounds, Soft, Non-Tender Neuro Exam (Abbreviated): Alert, Oriented, Normal Cognition, Normal Gait Extremities: Normal Inspection Course - Vital Signs Last Recorded V/S: Last Vital Signs Temp 98.7 F 07/24/21 11:13 Pulse 63 07/24/21 11:13 Resp 18 07/24/21 11:13 BP 125/75 07/24/21 11:13 Pulse Ox 98 07/24/21 11:13 - Orders/Labs/Meds Labs: Laboratory Tests 07/24/21 07/24/21 Range/Units 11:20 11:20 WBC 6.87 (4.0-11.0) K/uL RBC 4.90 (4.30-5.90) M/uL Hgb 13.2 (12.0-16.0) g/dL Hct 40.3 (36.0-46.0) % MCV 82.2 (80.0-98.0) fL MCH 26.9 L (27.0-32.0) pg MCHC 32.8 (31.0-37.0) g/dL RDW Std Deviation 45.4 (28.0-62.0) fl RDW Coeff of Maged 15 (11.0-15.0) % Plt Count 326 (150-400) K/uL MPV 9.70 (7.40-12.00) fL Neut % (Auto) 54.7 (48.0-80.0) % Lymph % (Auto) 35.7 (16.0-40.0) % [place] % (Auto) 6.1 (0.0-15.0) % Eos % (Auto) 3.1 (0.0-7.0) % Baso % (Auto) 0.4 (0.0-1.5) % Neut # (Auto) 3.8 (1.4-5.7) K/uL Lymph # (Auto) 2.5 H (0.6-2.4) K/uL [place] # (Auto) 0.4 (0.0-0.8) K/uL Eos # (Auto) 0.2 (0.0-0.7) K/uL Baso # (Auto) 0.0 (0.0-0.1) K/uL Nucleated RBC % 0.0 /100WBC Nucleated RBCs # 0 K/uL Sodium 140 (136-145) mmol/L Potassium 4.7 (3.5-5.1) mmol/L Chloride 106 (98-107) mmol/L Carbon Dioxide 24.9 (21.0-32.0) mmol/L BUN 10 (7.0-18.0) mg/dL Creatinine 1.0 (0.6-1.0) mg/dL Est Cr Clr Drug Dosing 62.58 mL/min Estimated GFR (MDRD) 59.4 ml/min Glucose 133 H (74-106) mg/dL Calcium 9.1 (8.5-10.1) mg/dL Total Bilirubin 0.4 (0.2-1.0) mg/dL AST 17 (15-37) IU/L ALT 40 (14-63) IU/L Alkaline Phosphatase 96 (46-116) U/L Creatine Kinase 90 (26-308) U/L Total Protein 6.9 (6.4-8.2) g/dL Albumin 3.6 (3.4-5.0) g/dL Globulin 3.3 (2.6-4.0) g/dL Albumin/Globulin Ratio 1.1 (0.9-1.6) Meds: Medications Discontinued Medications Generic Name Dose Route Start Last Admin Trade Name Freq PRN Reason Stop Dose Admin Diphenhydramine HCl 25 mg 07/24/21 11:12 07/24/21 11:29 Diphenhydramine 50 Mg/Ml Sdv IVPUSH 07/24/21 11:13 25 mg ONETIME ONE Administration Ketorolac Tromethamine 30 mg 07/24/21 12:36 07/24/21 12:48 Ketorolac 30 Mg/Ml Sdv IVPUSH 07/24/21 12:37 30 mg ONETIME ONE Administration Metoclopramide HCl 10 mg 07/24/21 11:12 07/24/21 11:29 Metoclopramide 10 Mg/2 Ml Sdv IVPUSH 07/24/21 11:13 10 mg ONETIME ONE Administration - Re-Assessments/Exams Free Text/Narrative Re-Assessment/Exam: 07/24/21 13:31 Patient headache resolved neurological symptoms likely complicated migraine patient be discharged follow-up with neurology. Departure - Departure Time of Disposition: 13:31 Disposition: Home, Self-Care 01 Condition: Good Clinical Impression: Complicated migraine - Discharge Information *PRESCRIPTION DRUG MONITORING PROGRAM REVIEWED*: Not Applicable *COPY OF PRESCRIPTION DRUG MONITORING REPORT IN PATIENT CARLOS: Not Applicable Instructions: Migraine Headache, [id number] Forms: ED Department Discharge Additional Instructions: You were seen today for headache and some numbness to your arms and legs. This is likely related to complicated migraine. You have a history of migraines and we attest a number below to neurology you can call and see if you continue to have these uncontrollable migraines. If you have any other concerning signs or symptoms please read return to the ED as well. The following information is given to patients seen in the emergency department who are being discharged to home. This information is to outline your options for follow-up care. We provide all patients seen in our emergency department with a follow-up referral. The need for follow-up, as well as the timing and circumstances, are variable depending upon the specifics of your emergency department visit. If you don't have a primary care physician on staff, we will provide you with a referral. We always advise you to contact your personal physician following an emergency department visit to inform them of the circumstance of the visit and for follow-up with them and/or the need for any referrals to a consulting specialist. The emergency department will also refer you to a specialist when appropriate. This referral assures that you have the opportunity for follow-up care with a specialist. All of these measure are taken in an effort to provide you with optimal care, which includes your follow-up. Under all circumstances we always encourage you to contact your private physician who remains a resource for coordinating your care. When calling for follow-up care, please make the office aware that this follow-up is from your recent emergency room visit. If for any reason you are refused follow-up, please contact the [facility] Department at and asked to speak to the emergency department charge nurse. Please follow up with your primary care physician. If you do not have a primary care physician, see below: [facility] - Neurology Professional [address], [address] [place] [address] Sepsis Event Note (ED) - Focused Exam Vital Signs: Vital Signs Temp Pulse Resp BP Pulse Ox 07/24/21 11:13 98.7 F 63 18 125/75 98 - Assessment/Plan Plan: Patient is a 45-year-old female presents today for headache and numbness to the left side and right foot and jaw. Her numbness does not follow any distribution this is most likely a complicated migraine. We will obtain a CT provide pain control and reassess
[2021-07-24 12:02] LABS: CARBON DIOXIDE,CO2 24.9 mmol/L (21.0-32.0); POTASSIUM,K 4.7 mmol/L (3.5-5.1)
--- NOTE | 2021-07-24 12:16 | CT ---
INDICATION: Migraine, left-sided numbness. COMPARISON: CT head 05/06/2019. TECHNIQUE: CT of the head without IV contrast. Coronal and sagittal reconstructions are provided. FINDINGS: No intracranial hemorrhage, mass effect, or evidence of acute infarct. No midline shift. No abnormal extra-axial fluid collections. Normal caliber ventricular system. Orbits and extraocular muscles are symmetric. The paranasal sinuses and mastoid air cells are clear. No acute fracture identified. Soft tissues are unremarkable. IMPRESSION: : No acute intracranial findings. Please note that all CT scans at this facility use dose modulation, iterative reconstruction, and/or weight-based dosing when appropriate to reduce radiation dose to as low as reasonably achievable. Dictated by Bekah Pina MD @ 07/24/2021 12:14:47 PM (Electronically Signed)
[2021-07-24] MEDS ORDERED: Ketorolac 30 MG/ML SDV IVPUSH ONE (12:36)
[2021-07-24 13:40] VITALS: BP 130/62; PULSE 58
== END 2021-07-24 13:40 | disposition home or self-care (01) ==
LOC: MW.ED 10:59
DX: G43.109 Migraine with aura, not intractable, without status migrainosus (principal); E66.9 Obesity, unspecified; Z68.36 Body mass index [BMI] 36.0-36.9, adult; Z88.8 Allergy status to other drugs, medicaments and biological substances; Z91.048 Other nonmedicinal substance allergy status; Z91.018 Allergy to other foods; Z79.899 Other long term (current) drug therapy
CPT/HCPCS: 36415; 70450; 80053; 82550; 85025; 96374; 96375; 99284; J1200; J1885; J2765

== ENCOUNTER 2021-11-29 18:40 | Emergency (ER) | payer BC ==
[2021-11-29] MEDS ORDERED: Sodium Chloride 0.9% 1,000 ML IV ONE (19:08)
[2021-11-29] MEDS ORDERED: diphenhydrAMINE 50 MG/ML SDV IVPUSH ONE (19:08)
[2021-11-29] MEDS ORDERED: Metoclopramide 10 MG/2 ML SDV IVPUSH ONE (19:08)
[2021-11-29] MEDS ORDERED: Ketorolac 30 MG/ML SDV IVPUSH ONE (19:08)
[2021-11-29] MEDS ORDERED: Acetaminophen/Butalbital/Caffeine 325-50-40 MG Tab PO ONE (19:09)
[2021-11-29 19:50] LABS: BLOOD UREA NITROGEN,BUN 14 mg/dL (7.0-18.0); CHLORIDE,CL 105 mmol/L (98-107); GLUCOSE RANDOM 137 mg/dL (74-106); SODIUM,NA 142 mmol/L (136-145)
[2021-11-29 20:32] VITALS: BP 130/74; PULSE 69
== END 2021-11-29 20:58 | disposition home or self-care (01) ==
LOC: MW.ED 18:40
DX: G43.909 Migraine, unspecified, not intractable, without status migrainosus (principal); E66.9 Obesity, unspecified; Z68.33 Body mass index [BMI] 33.0-33.9, adult; Z91.048 Other nonmedicinal substance allergy status; Z91.018 Allergy to other foods; Z86.16 Personal history of COVID-19
CPT/HCPCS: 36415; 80048; 83735; 84702; 84703; 85025; 96374; 96375; 99283; A9270; J1200; J1885; J2765; J7030

== ENCOUNTER 2022-03-10 23:32 | Emergency (ER) | payer BC | END 2022-03-11 00:40 | disposition left against medical advice (07) | LOC: MW.ED 23:32 | DX: Z53.21 Procedure and treatment not carried out due to patient leaving prior to being seen by health care provider (principal) ==

== ENCOUNTER 2022-05-25 16:14 | Emergency (ER) | payer BC ==
[2022-05-25 18:14] LABS: CORONAVIRUS COVID-19 NAA NEGATIVE (NEGATIVE); INFLUENZA A NAA NEGATIVE (NEGATIVE); INFLUENZA B NAA NEGATIVE (NEGATIVE); RESPIRATORY SYNCYTIAL VIR NAA NEGATIVE (NEGATIVE)
[2022-05-25 19:16] LABS: CARBON DIOXIDE,CO2 29.9 mmol/L (21.0-32.0); POTASSIUM,K 4.6 mmol/L (3.5-5.1)
[2022-05-25] MEDS ORDERED: Acetaminophen/Butalbital/Caffeine 325-50-40 MG Tab PO ONE (19:22)
[2022-05-25] MEDS ORDERED: Naproxen 500 MG Tab PO ONE (19:24)
[2022-05-25 20:09] VITALS: BP 137/67; PULSE 78
== END 2022-05-25 20:10 | disposition home or self-care (01) ==
LOC: MW.ED 16:14
DX: M35.00 Sjogren syndrome, unspecified (principal); B34.9 Viral infection, unspecified; M19.90 Unspecified osteoarthritis, unspecified site; E66.9 Obesity, unspecified; Z68.39 Body mass index [BMI] 39.0-39.9, adult; Z88.8 Allergy status to other drugs, medicaments and biological substances; Z91.048 Other nonmedicinal substance allergy status; Z91.018 Allergy to other foods; Z79.899 Other long term (current) drug therapy; Z20.822 Contact with and (suspected) exposure to COVID-19
CPT/HCPCS: 0241U; 36415; 80053; 83735; 84443; 85025; 99284; A9270

== ENCOUNTER 2022-06-23 13:29 | Emergency (ER) | payer BC ==
[2022-06-23] MEDS ORDERED: Ketorolac 30 MG/ML SDV IVPUSH ONE (13:47)
[2022-06-23] MEDS ORDERED: diphenhydrAMINE 50 MG/ML SDV IVPUSH ONE (13:47)
[2022-06-23] MEDS ORDERED: Sodium Chloride 0.9% 1,000 ML IV ONE (13:47)
[2022-06-23] MEDS ORDERED: Sodium Chloride 0.9% 2.5 ML Syringe FLUSH PRN (13:47)
[2022-06-23] MEDS ORDERED: Sodium Chloride 0.9% 10 ML Syringe FLUSH PRN (13:47)
[2022-06-23] MEDS ORDERED: Metoclopramide 10 MG/2 ML SDV IVPUSH ONE (13:47)
[2022-06-23 14:28] LABS: CARBON DIOXIDE,CO2 25.7 mmol/L (21.0-32.0); POTASSIUM,K 3.8 mmol/L (3.5-5.1)
[2022-06-23 17:13] VITALS: BP 127/67; PULSE 70
== END 2022-06-23 15:12 | disposition home or self-care (01) ==
LOC: MW.ED 13:29
DX: G43.909 Migraine, unspecified, not intractable, without status migrainosus (principal); E66.9 Obesity, unspecified; Z68.39 Body mass index [BMI] 39.0-39.9, adult; Z91.018 Allergy to other foods; Z91.048 Other nonmedicinal substance allergy status; Z88.8 Allergy status to other drugs, medicaments and biological substances; Z86.16 Personal history of COVID-19
CPT/HCPCS: 36415; 80053; 85025; 96361; 96374; 96375; 99283; J1200; J1885; J2765; J3490; J7030

== ENCOUNTER 2022-07-16 12:01 | Emergency (ER) | payer BC ==
[2022-07-16] MEDS ORDERED: Morphine 4 MG/ML Syringe IVPUSH ONE (12:24)
[2022-07-16] MEDS ORDERED: Sodium Chloride 0.9% 1,000 ML IV ONE (12:24)
[2022-07-16 13:24] LABS: CORONAVIRUS COVID-19 NAA NEGATIVE (NEGATIVE); INFLUENZA A NAA NEGATIVE (NEGATIVE); INFLUENZA B NAA NEGATIVE (NEGATIVE)
[2022-07-16 13:41] LABS: CARBON DIOXIDE,CO2 29.3 mmol/L (21.0-32.0); POTASSIUM,K 4.4 mmol/L (3.5-5.1)
[2022-07-16 15:04] VITALS: BP 124/64; PULSE 85
== END 2022-07-16 15:04 | disposition home or self-care (01) ==
LOC: MW.ED 12:01
DX: R07.89 Other chest pain (principal); Z88.6 Allergy status to analgesic agent; Z91.048 Other nonmedicinal substance allergy status; Z91.018 Allergy to other foods; Z79.899 Other long term (current) drug therapy; Z90.49 Acquired absence of other specified parts of digestive tract; Z90.710 Acquired absence of both cervix and uterus; Z20.822 Contact with and (suspected) exposure to COVID-19
CPT/HCPCS: 0240U; 36415; 71045; 80053; 83690; 83735; 84484; 85025; 85379; 85610; 85730; 93005; 96361; 96374; 99285; J2270; J7030

== ENCOUNTER 2022-11-08 15:10 | Emergency (ER) | payer BC ==
[2022-11-08] MEDS ORDERED: Sodium Chloride 0.9% 1,000 ML IV ONE ×2 (15:49→15:50)
[2022-11-08] MEDS ORDERED: Sodium Chloride 0.9% 10 ML Syringe FLUSH PRN (15:49)
[2022-11-08] MEDS ORDERED: Sodium Chloride 0.9% 2.5 ML Syringe FLUSH PRN (15:49)
[2022-11-08] MEDS ORDERED: Ondansetron 4 MG/2 ML SDV IVPUSH ONE (15:49)
[2022-11-08 17:05] LABS: CARBON DIOXIDE,CO2 26.9 mmol/L (21.0-32.0); POTASSIUM,K 3.5 mmol/L (3.5-5.1)
[2022-11-08 18:13] VITALS: BP 119/62; PULSE 63
== END 2022-11-08 18:20 | disposition home or self-care (01) ==
LOC: MW.ED 15:10
DX: K52.9 Noninfective gastroenteritis and colitis, unspecified (principal); E86.0 Dehydration; E66.9 Obesity, unspecified; Z90.49 Acquired absence of other specified parts of digestive tract; Z98.890 Other specified postprocedural states; Z86.16 Personal history of COVID-19; Z88.8 Allergy status to other drugs, medicaments and biological substances; Z91.018 Allergy to other foods; Z91.048 Other nonmedicinal substance allergy status; Z68.33 Body mass index [BMI] 33.0-33.9, adult
CPT/HCPCS: 36415; 80053; 83690; 85025; 96361; 96374; 99284; J2405; J3490; J7030

== ENCOUNTER 2022-12-07 15:21 | Emergency (ER) | payer BC ==
[2022-12-07] MEDS ORDERED: LORazepam 1 MG Tab PO ONE (15:44)
[2022-12-07 15:56] LABS: BASOPHILS PERCENT AUTO 0.1 % (0.0-1.5); HEMATOCRIT 42.1 % (36.0-46.0); HEMOGLOBIN 14.2 g/dL (12.0-16.0); LYMPHOCYTES ABSOLUTE AUTO 2.4 K/uL (0.6-2.4); LYMPHOCYTES PERCENT AUTO 20.9 % (16.0-40.0); MEAN CORPUSCULAR HEMOGLOBIN 28.8 pg (27.0-32.0); MEAN CORPUSCULAR HGB CONC 33.7 g/dL (31.0-37.0); MEAN CORPUSCULAR VOLUME 85.4 fL (80.0-98.0); MONOCYTES ABSOLUTE AUTO 0.7 K/uL (0.0-0.8); NEUTROPHILS ABSOLUTE AUTO 8.3 K/uL (1.4-5.7); NRBC ABSOLUTE 0 K/uL; PLATELET COUNT,PLT 324 K/uL (150-400); RED BLOOD CELL COUNT 4.93 M/uL (4.30-5.90); WHITE BLOOD CELL COUNT,WBC 11.42 K/uL (4.0-11.0)
[2022-12-07 16:18] LABS: A/G RATIO 1.2 (0.9-1.6); ALBUMIN 4.1 g/dL (3.4-5.0); BILIRUBIN TOTAL 0.4 mg/dL (0.2-1.0); CALCIUM 9.1 mg/dL (8.5-10.1); CARBON DIOXIDE,CO2 27.8 mmol/L (21.0-32.0); CREATININE 0.9 mg/dL (0.6-1.0); EST CRCL DRUG DOSING (CG) 68.04 mL/min; PROTEIN TOTAL,TP 7.6 g/dL (6.4-8.2)
[2022-12-07 18:47] VITALS: BP 127/65; PULSE 56
== END 2022-12-07 18:47 | disposition home or self-care (01) ==
LOC: MW.ED 15:21
DX: S86.911A Strain of unspecified muscle(s) and tendon(s) at lower leg level, right leg, initial encounter (principal); F32.A Depression, unspecified; E66.9 Obesity, unspecified; Z68.34 Body mass index [BMI] 34.0-34.9, adult; Z86.16 Personal history of COVID-19; Z79.899 Other long term (current) drug therapy; Z88.8 Allergy status to other drugs, medicaments and biological substances; Z91.018 Allergy to other foods; X58.XXXA Exposure to other specified factors, initial encounter
CPT/HCPCS: 36415; 80053; 85025; 85610; 93971; 99284; A9270; 99283

== ENCOUNTER 2022-12-23 16:40 | Emergency (ER) | payer BC ==
[2022-12-23] MEDS ORDERED: Sodium Chloride 0.9% 2.5 ML Syringe FLUSH PRN (16:53)
[2022-12-23] MEDS ORDERED: Sodium Chloride 0.9% 10 ML Syringe FLUSH PRN (16:53)
[2022-12-23] MEDS ORDERED: Sodium Chloride 0.9% 1,000 ML IV ONE ×2 (16:57→18:05)
[2022-12-23] MEDS ORDERED: Ketorolac 30 MG/ML SDV IVPUSH ONE (16:58)
[2022-12-23] MEDS ORDERED: diphenhydrAMINE 50 MG/ML SDV IVPUSH ONE (16:58)
[2022-12-23] MEDS ORDERED: Ondansetron 4 MG/2 ML SDV IVPUSH ONE (17:01)
[2022-12-23 17:15] LABS: APPEARANCE,URINE CLEAR; GLUCOSE,URINE NEGATIVE (NEGATIVE); KETONES,URINE 40 mg/dL (NEGATIVE); LEUKOCYTE ESTERASE,URINE NEGATIVE (NEGATIVE); NITRITE,URINE NEGATIVE (NEGATIVE); OCCULT BLOOD,URINE NEGATIVE (NEGATIVE); PROTEIN,URINE TRACE mg/dL (NEGATIVE)
[2022-12-23 17:16] LABS: BASOPHILS PERCENT AUTO 0.2 % (0.0-1.5); EOSINOPHILS ABSOLUTE AUTO 0.1 K/uL (0.0-0.7); EOSINOPHILS PERCENT AUTO 0.8 % (0.0-7.0); HEMATOCRIT 44.6 % (36.0-46.0); HEMOGLOBIN 14.9 g/dL (12.0-16.0); LYMPHOCYTES ABSOLUTE AUTO 3.4 K/uL (0.6-2.4); LYMPHOCYTES PERCENT AUTO 36.2 % (16.0-40.0); MEAN CORPUSCULAR HEMOGLOBIN 28.8 pg (27.0-32.0); MEAN CORPUSCULAR HGB CONC 33.4 g/dL (31.0-37.0); MEAN CORPUSCULAR VOLUME 86.3 fL (80.0-98.0); MONOCYTES ABSOLUTE AUTO 0.7 K/uL (0.0-0.8); MONOCYTES PERCENT AUTO 7.4 % (0.0-15.0); NEUTROPHILS ABSOLUTE AUTO 5.2 K/uL (1.4-5.7); NEUTROPHILS PERCENT AUTO 55.4 % (48.0-80.0); PLATELET COUNT,PLT 303 K/uL (150-400); RED BLOOD CELL COUNT 5.17 M/uL (4.30-5.90)
[2022-12-23 17:17] LABS: BILIRUBIN,URINE SMALL (NEGATIVE); COLOR,URINE DARK YELLOW
[2022-12-23 17:25] LABS: BACTERIA,URINE FEW (NEGATIVE); EPITHELIAL CELLS,URINE FEW (NONE-FEW); RBC,URINE NONE SEEN (0-2/HPF); WBC,URINE 0-1 (0-5/HPF)
[2022-12-23 17:43] LABS: A/G RATIO 1.2 (0.9-1.6); ALBUMIN 3.8 g/dL (3.4-5.0); BILIRUBIN TOTAL 0.5 mg/dL (0.2-1.0); CALCIUM 9.2 mg/dL (8.5-10.1); CARBON DIOXIDE,CO2 25.8 mmol/L (21.0-32.0); CREATININE 0.9 mg/dL (0.6-1.0); EST CRCL DRUG DOSING (CG) 68.04 mL/min; POTASSIUM,K 3.7 mmol/L (3.5-5.1); PROTEIN TOTAL,TP 6.9 g/dL (6.4-8.2)
[2022-12-23 18:52] VITALS: BP 130/75; PULSE 65
== END 2022-12-23 19:26 | disposition home or self-care (01) ==
LOC: MW.ED 16:40
DX: R51.9 Headache, unspecified (principal); R11.2 Nausea with vomiting, unspecified; E78.00 Pure hypercholesterolemia, unspecified; E11.9 Type 2 diabetes mellitus without complications; E66.9 Obesity, unspecified; Z68.32 Body mass index [BMI] 32.0-32.9, adult; Z91.018 Allergy to other foods; Z88.8 Allergy status to other drugs, medicaments and biological substances; Z91.048 Other nonmedicinal substance allergy status; Z86.16 Personal history of COVID-19
CPT/HCPCS: 36415; 80053; 81001; 83690; 85025; 93005; 96361; 96374; 96375; 99283; J1200; J1885; J2405; J3490; J7030; 93010; 99284

== ENCOUNTER 2023-01-04 15:39 | Emergency (ER) | payer BC ==
[2023-01-04] MEDS ORDERED: Sodium Chloride 0.9% 1,000 ML IV ONE ×2 (16:18→17:39)
[2023-01-04] MEDS ORDERED: diphenhydrAMINE 50 MG/ML SDV IVPUSH ONE (16:19)
[2023-01-04] MEDS ORDERED: Sodium Chloride 0.9% 2.5 ML Syringe FLUSH PRN (16:19)
[2023-01-04] MEDS ORDERED: Metoclopramide 10 MG/2 ML SDV IVPUSH ONE (16:19)
[2023-01-04] MEDS ORDERED: Sodium Chloride 0.9% 10 ML Syringe FLUSH PRN (16:19)
[2023-01-04] MEDS ORDERED: Dexamethasone 10 MG/ML SDV IVPUSH ONE (16:21)
[2023-01-04] MEDS ORDERED: Magnesium Sulfate/Water 2 GM in Premix Bag 1 BAG IV ONE (16:21)
[2023-01-04] MEDS ORDERED: Ketorolac 30 MG/ML SDV IVPUSH ONE (17:39)
[2023-01-04] MEDS ORDERED: droPERidol 1.25 MG in Sodium Chloride 0.9% 50 ML IV ONE (17:40)
[2023-01-04 22:29] VITALS: BP 111/75; PULSE 63
== END 2023-01-04 19:15 | disposition home or self-care (01) ==
LOC: MW.ED 15:39
DX: R51.9 Headache, unspecified (principal); E78.00 Pure hypercholesterolemia, unspecified; E11.9 Type 2 diabetes mellitus without complications; E66.9 Obesity, unspecified; Z79.51 Long term (current) use of inhaled steroids; Z91.018 Allergy to other foods; Z91.048 Other nonmedicinal substance allergy status; Z88.8 Allergy status to other drugs, medicaments and biological substances; Z86.16 Personal history of COVID-19; Z68.31 Body mass index [BMI] 31.0-31.9, adult
CPT/HCPCS: 93005; 96365; 96366; 96367; 96375; 99284; J1100; J1200; J1790; J1885; J2765; J3475; J3490; J7030; 93010

== ENCOUNTER 2023-03-09 16:03 | Emergency (ER) | payer BC ==
[2023-03-09 16:26] VITALS: BP 128/79
[2023-03-09 17:01] LABS: BASOPHILS PERCENT AUTO 0.3 % (0.0-1.5); EOSINOPHILS ABSOLUTE AUTO 0.4 K/uL (0.0-0.7); EOSINOPHILS PERCENT AUTO 5.7 % (0.0-7.0); HEMATOCRIT 38.8 % (36.0-46.0); HEMOGLOBIN 12.7 g/dL (12.0-16.0); LYMPHOCYTES ABSOLUTE AUTO 2.7 K/uL (0.6-2.4); LYMPHOCYTES PERCENT AUTO 37.2 % (16.0-40.0); MEAN CORPUSCULAR HEMOGLOBIN 28.7 pg (27.0-32.0); MEAN CORPUSCULAR HGB CONC 32.7 g/dL (31.0-37.0); MEAN CORPUSCULAR VOLUME 87.6 fL (80.0-98.0); MONOCYTES ABSOLUTE AUTO 0.5 K/uL (0.0-0.8); MONOCYTES PERCENT AUTO 6.2 % (0.0-15.0); NEUTROPHILS ABSOLUTE AUTO 3.7 K/uL (1.4-5.7); NEUTROPHILS PERCENT AUTO 50.6 % (48.0-80.0); NRBC ABSOLUTE 0 K/uL; PLATELET COUNT,PLT 342 K/uL (150-400); RED BLOOD CELL COUNT 4.43 M/uL (4.30-5.90); WHITE BLOOD CELL COUNT,WBC 7.25 K/uL (4.0-11.0)
[2023-03-09 17:14] LABS: BLOOD UREA NITROGEN,BUN 23 mg/dL (7.0-18.0); C-REACTIVE PROTEIN <0.20 mg/dL (0.00-0.90); CARBON DIOXIDE,CO2 27.7 mmol/L (21.0-32.0); CHLORIDE,CL 106 mmol/L (98-107); CREATININE 0.9 mg/dL (0.6-1.0); EST CRCL DRUG DOSING (CG) 68.04 mL/min; GLUCOSE RANDOM 92 mg/dL (74-106); POTASSIUM,K 4.2 mmol/L (3.5-5.1); SODIUM,NA 142 mmol/L (136-145)
[2023-03-09 17:19] LABS: ESTIMATED GFR 78 mL/min (>60)
[2023-03-09] MEDS ORDERED: Iopamidol 755 Mg/ML 100 ML Bottle IVPUSH ONE (17:34)
[2023-03-09 19:32] VITALS: PULSE 62
== END 2023-03-09 19:31 | disposition home or self-care (01) ==
LOC: MW.ED 16:03
DX: L98.499 Non-pressure chronic ulcer of skin of other sites with unspecified severity (principal); E78.00 Pure hypercholesterolemia, unspecified; E11.9 Type 2 diabetes mellitus without complications; E66.9 Obesity, unspecified; Z86.16 Personal history of COVID-19; Z88.8 Allergy status to other drugs, medicaments and biological substances; Z91.09 Other allergy status, other than to drugs and biological substances; Z68.31 Body mass index [BMI] 31.0-31.9, adult
CPT/HCPCS: 36415; 74177; 80048; 85025; 85652; 86140; 99284; Q9967

== ENCOUNTER 2023-05-08 18:51 | Emergency (ER) | payer BC ==
[2023-05-08] MEDS ORDERED: Sodium Chloride 0.9% 10 ML Syringe FLUSH PRN (19:15)
[2023-05-08] MEDS ORDERED: Sodium Chloride 0.9% 2.5 ML Syringe FLUSH PRN (19:15)
[2023-05-08 19:30] LABS: BASOPHILS ABSOLUTE AUTO 0.04 K/uL (0.00-0.20); BASOPHILS PERCENT AUTO 0.6 % (0.0-1.0); EOSINOPHILS ABSOLUTE AUTO 0.24 K/uL (0.00-0.45); EOSINOPHILS PERCENT AUTO 3.7 % (0.0-6.0); HEMATOCRIT 43.5 % (37.0-47.0); HEMOGLOBIN 14.8 g/dL (12.0-16.0); IMMATURE GRAN ABSOLUTE AUTO 0.01 K/uL (0.00-0.05); IMMATURE GRAN PERCENT AUTO 0.2 % (0.0-0.4); LYMPHOCYTES ABSOLUTE AUTO 2.98 K/uL (1.00-4.80); LYMPHOCYTES PERCENT AUTO 45.4 % (24.0-44.0); MEAN CORPUSCULAR HEMOGLOBIN 28.8 pg (28.0-32.0); MEAN CORPUSCULAR VOLUME 84.6 fL (83.0-99.0); MEAN PLATELET VOLUME 9.4 fL (9.4-12.3); MONOCYTES ABSOLUTE AUTO 0.44 K/uL (0.00-0.80); MONOCYTES PERCENT AUTO 6.7 % (0.0-8.0); NEUTROPHILS ABSOLUTE AUTO 2.9 K/uL (1.8-7.7); NEUTROPHILS PERCENT AUTO 43.4 % (41.0-71.0); PLATELET COUNT,PLT 297 K/uL (150-400); RED BLOOD CELL COUNT 5.14 M/uL (4.10-5.30); WHITE BLOOD CELL COUNT,WBC 6.56 K/uL (3.9-11.3)
[2023-05-08 19:45] LABS: AMPHETAMINES SCREEN, URINE NEGATIVE (CUTOFF=500); BARBITURATE SCREEN,URINE PRESUMPTIVE POSITIVE (CUTOFF=200); BENZODIAZEPINES SCREEN,URINE NEGATIVE (CUTOFF=150); BUPRENORPHINE SCREEN,URINE NEGATIVE (CUTOFF=10); METHADONE SCREEN, URINE NEGATIVE (CUTOFF=200); METHAMPHETAMINES SCREEN, URINE NEGATIVE (CUTOFF=500); OXYCODONE SCREEN,URINE PRESUMPTIVE POSITIVE (CUT0FF=100); PCP SCREEN,URINE NEGATIVE (CUTOFF=25); PROPOXYPHENE SCREEN,URINE NEGATIVE (CUTOFF=300); THC SCREEN,URINE 20 NG/ML NEGATIVE (CUTOFF=50)
[2023-05-08] MEDS ORDERED: Acetaminophen 325 MG Tab PO ONE (20:22)
[2023-05-08 20:51] LABS: A/G RATIO 1.4 (0.9-1.6); ALANINE AMINOTRANSFERASE,ALT 30 IU/L (14-63); ALBUMIN 4.5 g/dL (3.4-5.0); ALKALINE PHOSPHATASE 103 U/L (46-116); ASPARTATE AMNIOTRANSFERASE,AST 17 IU/L (15-37); BILIRUBIN TOTAL 0.6 mg/dL (0.2-1.0); BLOOD UREA NITROGEN,BUN 13 mg/dL (7.0-18.0); CALCIUM 9.4 mg/dL (8.5-10.1); CARBON DIOXIDE,CO2 26.8 mmol/L (21.0-32.0); CHLORIDE,CL 106 mmol/L (98-107); CREATININE 0.9 mg/dL (0.6-1.0); EST CRCL DRUG DOSING (CG) 68.04 mL/min; GLUCOSE RANDOM 106 mg/dL (74-106); POTASSIUM,K 4.3 mmol/L (3.5-5.1); PROTEIN TOTAL,TP 7.8 g/dL (6.4-8.2); SALICYLATE 1.3 mg/dL (0.0-20.0); SODIUM,NA 141 mmol/L (136-145)
[2023-05-08 20:53] LABS: ESTIMATED GFR 78 mL/min (>60)
[2023-05-08 20:54] LABS: ETHANOL BLOOD MEDICAL < 3.0 mg/dL
[2023-05-08] MEDS ORDERED: Octyl 2-Cyanoacrylate 1 g/1 mL 1 APPLIC PEN TOP ONE (21:30)
[2023-05-08 21:50] VITALS: PULSE 71
[2023-05-08 22:07] VITALS: BP 134/107
== END 2023-05-08 22:05 | disposition home or self-care (01) ==
LOC: MW.ED 18:51
DX: F32.A Depression, unspecified (principal); E11.9 Type 2 diabetes mellitus without complications; E66.9 Obesity, unspecified; E78.00 Pure hypercholesterolemia, unspecified; Z20.822 Contact with and (suspected) exposure to COVID-19; Z86.16 Personal history of COVID-19; Z79.899 Other long term (current) drug therapy; Z88.8 Allergy status to other drugs, medicaments and biological substances; Z91.048 Other nonmedicinal substance allergy status
CPT/HCPCS: 36415; 80053; 80143; 80179; 80305; 80307; 81025; 85025; 87635; 99285; A9270; J3490; 99284; U0002

== ENCOUNTER 2023-06-07 15:09 | Emergency (ER) | payer BC ==
[2023-06-07] MEDS ORDERED: Ketorolac 30 MG/ML SDV IVPUSH ONE (16:16)
[2023-06-07] MEDS ORDERED: Sodium Chloride 0.9% 10 ML Syringe FLUSH PRN (16:16)
[2023-06-07] MEDS ORDERED: Metoclopramide 10 MG/2 ML SDV IVPUSH ONE (16:16)
[2023-06-07] MEDS ORDERED: diphenhydrAMINE 50 MG/ML SDV IVPUSH ONE (16:16)
[2023-06-07] MEDS ORDERED: Sodium Chloride 0.9% 1,000 ML IV ONE (16:16)
[2023-06-07] MEDS ORDERED: Sodium Chloride 0.9% 2.5 ML Syringe FLUSH PRN (16:16)
[2023-06-07 17:23] LABS: CORONAVIRUS COVID-19 NAA NEGATIVE (NEGATIVE); INFLUENZA A NAA NEGATIVE (NEGATIVE); INFLUENZA B NAA NEGATIVE (NEGATIVE)
[2023-06-07 17:53] VITALS: BP 118/75; PULSE 62
== END 2023-06-07 17:52 | disposition home or self-care (01) ==
LOC: MW.ED 15:09
DX: G43.809 Other migraine, not intractable, without status migrainosus (principal); E11.9 Type 2 diabetes mellitus without complications; E66.9 Obesity, unspecified; Z68.28 Body mass index [BMI] 28.0-28.9, adult; Z79.84 Long term (current) use of oral hypoglycemic drugs; Z88.8 Allergy status to other drugs, medicaments and biological substances; Z91.048 Other nonmedicinal substance allergy status; Z88.6 Allergy status to analgesic agent; Z91.018 Allergy to other foods
CPT/HCPCS: 0240U; 96361; 96374; 96375; 99283; J1200; J1885; J2765; J3490; J7030; 99284

== ENCOUNTER 2023-08-14 14:13 | Emergency (ER) | payer BC ==
[2023-08-14] MEDS ORDERED: Morphine 4 MG/ML Syringe IVPUSH STA ×2 (15:39→17:53)
[2023-08-14] MEDS ORDERED: Sodium Chloride 0.9% 1,000 ML IV STA (15:39)
[2023-08-14] MEDS ORDERED: Ondansetron 4 MG/2 ML SDV IVPUSH STA (15:39)
[2023-08-14] MEDS: Sodium Chloride 0.9% 2.5 ML Syringe FLUSH PRN ×2 (15:46→17:21)
[2023-08-14] MEDS: Sodium Chloride 0.9% 10 ML Syringe FLUSH PRN ×2 (15:46→17:21)
[2023-08-14 16:01] LABS: BASOPHILS ABSOLUTE AUTO 0.02 K/uL (0.00-0.20); BASOPHILS PERCENT AUTO 0.1 % (0.0-1.0); EOSINOPHILS ABSOLUTE AUTO 0.05 K/uL (0.00-0.45); EOSINOPHILS PERCENT AUTO 0.4 % (0.0-6.0); HEMATOCRIT 41.6 % (37.0-47.0); HEMOGLOBIN 14.2 g/dL (12.0-16.0); IMMATURE GRAN ABSOLUTE AUTO 0.04 K/uL (0.00-0.05); IMMATURE GRAN PERCENT AUTO 0.3 % (0.0-0.4); LYMPHOCYTES ABSOLUTE AUTO 3.49 K/uL (1.00-4.80); LYMPHOCYTES PERCENT AUTO 25.9 % (24.0-44.0); MEAN CORPUSCULAR HEMOGLOBIN 29.5 pg (28.0-32.0); MEAN CORPUSCULAR HGB CONC 34.1 g/dL (32.0-36.0); MEAN CORPUSCULAR VOLUME 86.5 fL (83.0-99.0); MEAN PLATELET VOLUME 9.7 fL (9.4-12.3); MONOCYTES ABSOLUTE AUTO 0.88 K/uL (0.00-0.80); MONOCYTES PERCENT AUTO 6.5 % (0.0-8.0); NEUTROPHILS ABSOLUTE AUTO 9.01 K/uL (1.80-7.70); NEUTROPHILS PERCENT AUTO 66.8 % (41.0-71.0); PLATELET COUNT,PLT 318 K/uL (150-400); RED BLOOD CELL COUNT 4.81 M/uL (4.10-5.30); WHITE BLOOD CELL COUNT,WBC 13.49 K/uL (3.9-11.3)
[2023-08-14 16:20] LABS: A/G RATIO 1.3 (0.9-1.6); ALBUMIN 3.9 g/dL (3.4-5.0); BILIRUBIN TOTAL 0.3 mg/dL (0.2-1.0); CALCIUM 9.2 mg/dL (8.5-10.1); CARBON DIOXIDE,CO2 26.2 mmol/L (21.0-32.0); EST CRCL DRUG DOSING (CG) 61.23 mL/min; POTASSIUM,K 3.4 mmol/L (3.5-5.1); PROTEIN TOTAL,TP 6.9 g/dL (6.4-8.2)
[2023-08-14] MEDS ORDERED: Iopamidol 755 MG/ML 500 ML Multipack Bottle IVPUSH STA (17:13)
[2023-08-14 17:27] LABS: BILIRUBIN,URINE NEGATIVE (NEGATIVE); COLOR,URINE YELLOW; GLUCOSE,URINE NEGATIVE (NEGATIVE); KETONES,URINE NEGATIVE (NEGATIVE); LEUKOCYTE ESTERASE,URINE SMALL (NEGATIVE); NITRITE,URINE POSITIVE (NEGATIVE); OCCULT BLOOD,URINE SMALL (NEGATIVE); PROTEIN,URINE NEGATIVE (NEGATIVE); UROBILINOGEN,URINE 0.2 EU/dL (<2.0)
[2023-08-14 17:33] LABS: APPEARANCE,URINE SLT CLOUDY
[2023-08-14 17:38] LABS: BACTERIA,URINE 1+ (NEGATIVE); EPITHELIAL CELLS,URINE MODERATE (NONE-FEW); RBC,URINE 0-5 (0-2/HPF); WBC,URINE 0-5 (0-5/HPF)
[2023-08-14] MEDS ORDERED: cefTRIAXone 1 GM in Sodium Chloride 0.9% 50 ML IV STA (17:52)
[2023-08-14] MEDS ORDERED: Prochlorperazine 10 MG/2 ML SDV IVPUSH STA (18:27)
[2023-08-14] MEDS ORDERED: Promethazine 25 MG/ML SDV IM STA (18:58)
[2023-08-14 19:42] VITALS: BP 115/87; PULSE 80
== END 2023-08-14 19:43 | disposition home or self-care (01) ==
LOC: MW.ED 14:13
DX: K52.9 Noninfective gastroenteritis and colitis, unspecified (principal); N30.01 Acute cystitis with hematuria; K59.00 Constipation, unspecified; E11.9 Type 2 diabetes mellitus without complications; E66.9 Obesity, unspecified; Z86.16 Personal history of COVID-19; Z90.49 Acquired absence of other specified parts of digestive tract; Z68.26 Body mass index [BMI] 26.0-26.9, adult; Z90.710 Acquired absence of both cervix and uterus; Z91.048 Other nonmedicinal substance allergy status; Z91.018 Allergy to other foods; Z88.8 Allergy status to other drugs, medicaments and biological substances; Z79.899 Other long term (current) drug therapy
CPT/HCPCS: 36415; 74177; 80053; 81001; 81025; 83690; 85025; 87086; 87088; 87186; 96361; 96365; 96372; 96375; 96376; 99284; J0696; J2270; J2405; J2550; J3490; J7030; Q9967

== ENCOUNTER 2023-10-12 11:23 | Emergency (ER) | payer BC ==
[2023-10-12 11:56] VITALS: BP 119/72; PULSE 68
== END 2023-10-12 11:55 | disposition home or self-care (01) ==
LOC: MW.ED 11:23
DX: K04.7 Periapical abscess without sinus (principal); E11.9 Type 2 diabetes mellitus without complications; E66.9 Obesity, unspecified; Z86.16 Personal history of COVID-19; Z79.899 Other long term (current) drug therapy; Z91.018 Allergy to other foods; Z88.8 Allergy status to other drugs, medicaments and biological substances; Z91.048 Other nonmedicinal substance allergy status
CPT/HCPCS: 99283

== ENCOUNTER 2023-12-05 19:57 | Emergency (ER) | payer BC ==
[2023-12-05 20:15] LABS: BASOPHILS ABSOLUTE AUTO 0.05 K/uL (0.00-0.20); BASOPHILS PERCENT AUTO 0.7 % (0.0-1.0); EOSINOPHILS ABSOLUTE AUTO 0.09 K/uL (0.00-0.45); EOSINOPHILS PERCENT AUTO 1.2 % (0.0-6.0); HEMATOCRIT 39.8 % (37.0-47.0); HEMOGLOBIN 13.7 g/dL (12.0-16.0); IMMATURE GRAN ABSOLUTE AUTO 0.02 K/uL (0.00-0.05); IMMATURE GRAN PERCENT AUTO 0.3 % (0.0-0.4); LYMPHOCYTES ABSOLUTE AUTO 2.28 K/uL (1.00-4.80); MEAN CORPUSCULAR HEMOGLOBIN 29.8 pg (28.0-32.0); MEAN CORPUSCULAR HGB CONC 34.4 g/dL (32.0-36.0); MEAN CORPUSCULAR VOLUME 86.5 fL (83.0-99.0); MEAN PLATELET VOLUME 9.2 fL (9.4-12.3); MONOCYTES ABSOLUTE AUTO 0.52 K/uL (0.00-0.80); MONOCYTES PERCENT AUTO 6.8 % (0.0-8.0); NEUTROPHILS ABSOLUTE AUTO 4.64 K/uL (1.80-7.70); PLATELET COUNT,PLT 329 K/uL (150-400)
[2023-12-05 20:40] LABS: A/G RATIO 1.1 (0.9-1.6); ALANINE AMINOTRANSFERASE,ALT 36 IU/L (14-63); ALBUMIN 3.8 g/dL (3.4-5.0); ALKALINE PHOSPHATASE 92 U/L (46-116); ASPARTATE AMNIOTRANSFERASE,AST 16 IU/L (15-37); BILIRUBIN TOTAL 0.3 mg/dL (0.2-1.0); BLOOD UREA NITROGEN,BUN 14 mg/dL (7.0-18.0); CALCIUM 9.3 mg/dL (8.5-10.1); CARBON DIOXIDE,CO2 28.6 mmol/L (21.0-32.0); CHLORIDE,CL 107 mmol/L (98-107); CREATININE 0.9 mg/dL (0.6-1.0); GLUCOSE RANDOM 111 mg/dL (74-106); POTASSIUM,K 3.7 mmol/L (3.5-5.1); PROTEIN TOTAL,TP 7.2 g/dL (6.4-8.2); SODIUM,NA 143 mmol/L (136-145)
[2023-12-05 20:42] LABS: MAGNESIUM 2.2 mg/dL (1.8-2.4)
[2023-12-05] MEDS: LORazepam 0.5 MG Tab PO STA (20:56)
[2023-12-05 21:12] LABS: ESTIMATED GFR 78 mL/min (>60)
[2023-12-05 22:00] VITALS: BP 119/63; PULSE 55
== END 2023-12-05 21:59 | disposition home or self-care (01) ==
LOC: MW.ED 19:57
DX: R07.89 Other chest pain (principal); R00.2 Palpitations; E11.9 Type 2 diabetes mellitus without complications; Z86.16 Personal history of COVID-19; Z90.710 Acquired absence of both cervix and uterus; Z88.8 Allergy status to other drugs, medicaments and biological substances; Z79.899 Other long term (current) drug therapy; Z91.048 Other nonmedicinal substance allergy status; Z91.018 Allergy to other foods; Z75.8 Other problems related to medical facilities and other health care; Z90.49 Acquired absence of other specified parts of digestive tract
CPT/HCPCS: 36415; 71046; 80053; 83735; 84484; 85025; 85610; 93005; 99285; A9270; 93010; 99283

== ENCOUNTER 2024-03-14 18:10 | Emergency (ER) | payer BC ==
[2024-03-14 19:39] VITALS: BP 115/74; PULSE 65
== END 2024-03-14 19:49 | disposition home or self-care (01) ==
LOC: MW.ED 18:10
DX: M25.562 Pain in left knee (principal); Z75.8 Other problems related to medical facilities and other health care; E78.00 Pure hypercholesterolemia, unspecified; E11.9 Type 2 diabetes mellitus without complications; E66.9 Obesity, unspecified; Z86.16 Personal history of COVID-19; Z90.49 Acquired absence of other specified parts of digestive tract; Z90.710 Acquired absence of both cervix and uterus; Z79.899 Other long term (current) drug therapy; Z91.048 Other nonmedicinal substance allergy status; Z91.018 Allergy to other foods; Z88.8 Allergy status to other drugs, medicaments and biological substances
CPT/HCPCS: 73562-26-LT; 73562-LT; 99283

== ENCOUNTER 2024-07-28 18:38 | Emergency (ER) | payer BC ==
[2024-07-28 19:07] VITALS: BP 111/66; PULSE 70
== END 2024-07-28 19:57 | disposition home or self-care (01) ==
LOC: MW.ED 18:38
DX: U07.1 COVID-19 (principal); E78.00 Pure hypercholesterolemia, unspecified; E11.9 Type 2 diabetes mellitus without complications; E66.9 Obesity, unspecified; Z90.49 Acquired absence of other specified parts of digestive tract; Z90.710 Acquired absence of both cervix and uterus; Z79.899 Other long term (current) drug therapy; Z79.85 Long-term (current) use of injectable non-insulin antidiabetic drugs; Z79.891 Long term (current) use of opiate analgesic; Z79.2 Long term (current) use of antibiotics; Z88.8 Allergy status to other drugs, medicaments and biological substances; Z91.018 Allergy to other foods
CPT/HCPCS: 87428-QW; 99284

== ENCOUNTER 2024-10-24 12:03 | Emergency (ER) | payer OTHER, BC ==
[2024-10-24] MEDS: Ibuprofen 600 MG Tab PO ONE (12:21)
[2024-10-24 13:38] VITALS: BP 122/60; PULSE 58
== END 2024-10-24 13:37 | disposition home or self-care (01) ==
LOC: MW.ED 12:03
DX: S63.501A Unspecified sprain of right wrist, initial encounter (principal); E11.9 Type 2 diabetes mellitus without complications; E66.9 Obesity, unspecified; E78.00 Pure hypercholesterolemia, unspecified; Z79.899 Other long term (current) drug therapy; Z88.8 Allergy status to other drugs, medicaments and biological substances; Z79.84 Long term (current) use of oral hypoglycemic drugs; Z91.048 Other nonmedicinal substance allergy status; Z68.31 Body mass index [BMI] 31.0-31.9, adult; Z91.018 Allergy to other foods; X58.XXXA Exposure to other specified factors, initial encounter
CPT/HCPCS: 73100; 99283; A9270; 99282

== ENCOUNTER 2024-11-27 00:24 | Emergency (ER) | payer BC ==
[2024-11-27] MEDS ORDERED: Sodium Chloride 0.9% 10 ML Syringe FLUSH PRN (00:48)
[2024-11-27] MEDS ORDERED: Sodium Chloride 0.9% 2.5 ML Syringe FLUSH PRN (00:48)
[2024-11-27 00:53] LABS: BASOPHILS ABSOLUTE AUTO 0.05 K/uL (0.00-0.20); BASOPHILS PERCENT AUTO 0.7 % (0.0-1.0); EOSINOPHILS ABSOLUTE AUTO 0.26 K/uL (0.00-0.45); EOSINOPHILS PERCENT AUTO 3.4 % (0.0-6.0); HEMATOCRIT 37.9 % (37.0-47.0); HEMOGLOBIN 12.7 g/dL (12.0-16.0); IMMATURE GRAN ABSOLUTE AUTO 0.02 K/uL (0.00-0.05); IMMATURE GRAN PERCENT AUTO 0.3 % (0.0-0.4); LYMPHOCYTES ABSOLUTE AUTO 2.52 K/uL (1.00-4.80); LYMPHOCYTES PERCENT AUTO 33.3 % (24.0-44.0); MEAN CORPUSCULAR HEMOGLOBIN 29.7 pg (28.0-32.0); MEAN CORPUSCULAR HGB CONC 33.5 g/dL (32.0-36.0); MEAN CORPUSCULAR VOLUME 88.8 fL (83.0-99.0); MEAN PLATELET VOLUME 9.4 fL (9.4-12.3); MONOCYTES ABSOLUTE AUTO 0.72 K/uL (0.00-0.80); MONOCYTES PERCENT AUTO 9.5 % (0.0-8.0); NEUTROPHILS ABSOLUTE AUTO 3.99 K/uL (1.80-7.70); NEUTROPHILS PERCENT AUTO 52.8 % (41.0-71.0); PLATELET COUNT,PLT 267 K/uL (150-400); RED BLOOD CELL COUNT 4.27 M/uL (4.10-5.30); WHITE BLOOD CELL COUNT,WBC 7.56 K/uL (3.9-11.3)
[2024-11-27] MEDS: Iopamidol 755 MG/ML 500 ML Multipack Bottle IVPUSH ONE (01:07)
[2024-11-27 01:17] LABS: CARBON DIOXIDE,CO2 26.2 mmol/L (21.0-32.0); POTASSIUM,K 3.7 mmol/L (3.5-5.1)
[2024-11-27 01:18] LABS: A/G RATIO 1.2 (0.9-1.6); ALBUMIN 3.7 g/dL (3.4-5.0); BILIRUBIN TOTAL 0.3 mg/dL (0.2-1.0); CALCIUM 9.1 mg/dL (8.5-10.1); EST CRCL DRUG DOSING (CG) 57.47 mL/min; PROTEIN TOTAL,TP 6.7 g/dL (6.4-8.2)
[2024-11-27] MEDS: Ketorolac 30 MG/ML SDV IVPUSH ONE (02:01)
[2024-11-27 02:04] VITALS: BP 126/77; PULSE 66
== END 2024-11-27 02:05 | disposition home or self-care (01) ==
LOC: MW.ED 00:24
DX: R10.32 Left lower quadrant pain (principal); Z88.8 Allergy status to other drugs, medicaments and biological substances; Z91.018 Allergy to other foods; Z79.899 Other long term (current) drug therapy; E11.9 Type 2 diabetes mellitus without complications; E66.9 Obesity, unspecified; Z90.49 Acquired absence of other specified parts of digestive tract; Z68.32 Body mass index [BMI] 32.0-32.9, adult
CPT/HCPCS: 36415; 74177; 74177-26; 80053; 83605; 83690; 85025; 96374; 99283; 99284-25; J1885; Q9967

== ENCOUNTER 2024-12-01 18:00 | Emergency (ER) | payer BC ==
[2024-12-01] MEDS: Ketorolac 30 MG/ML SDV IM ONE (19:06)
[2024-12-01 19:12] LABS: CORONAVIRUS COVID-19 NAA NEGATIVE (NEGATIVE); INFLUENZA A NAA NEGATIVE (NEGATIVE); INFLUENZA B NAA NEGATIVE (NEGATIVE); RESPIRATORY SYNCYTIAL VIR NAA NEGATIVE (NEGATIVE)
[2024-12-01 19:47] VITALS: BP 139/73; PULSE 59
== END 2024-12-01 19:49 | disposition home or self-care (01) ==
LOC: MW.ED 18:00
DX: B34.9 Viral infection, unspecified (principal); E78.00 Pure hypercholesterolemia, unspecified; E11.9 Type 2 diabetes mellitus without complications; Z91.018 Allergy to other foods; Z79.51 Long term (current) use of inhaled steroids; Z79.899 Other long term (current) drug therapy; Z90.49 Acquired absence of other specified parts of digestive tract
CPT/HCPCS: 0241U; 71046; 96372; 99284; J1885; 99283

== ENCOUNTER 2024-12-21 06:46 | Emergency (ER) | payer BC ==
[2024-12-21 07:52] LABS: BASOPHILS ABSOLUTE AUTO 0.05 K/uL (0.00-0.20); BASOPHILS PERCENT AUTO 0.9 % (0.0-1.0); EOSINOPHILS ABSOLUTE AUTO 0.21 K/uL (0.00-0.45); EOSINOPHILS PERCENT AUTO 3.9 % (0.0-6.0); HEMATOCRIT 38.8 % (37.0-47.0); HEMOGLOBIN 12.5 g/dL (12.0-16.0); IMMATURE GRAN ABSOLUTE AUTO 0.01 K/uL (0.00-0.05); IMMATURE GRAN PERCENT AUTO 0.2 % (0.0-0.4); LYMPHOCYTES ABSOLUTE AUTO 2.08 K/uL (1.00-4.80); LYMPHOCYTES PERCENT AUTO 38.4 % (24.0-44.0); MEAN CORPUSCULAR HEMOGLOBIN 29.2 pg (28.0-32.0); MEAN CORPUSCULAR HGB CONC 32.2 g/dL (32.0-36.0); MEAN CORPUSCULAR VOLUME 90.7 fL (83.0-99.0); MONOCYTES ABSOLUTE AUTO 0.48 K/uL (0.00-0.80); MONOCYTES PERCENT AUTO 8.9 % (0.0-8.0); NEUTROPHILS ABSOLUTE AUTO 2.59 K/uL (1.80-7.70); NEUTROPHILS PERCENT AUTO 47.7 % (41.0-71.0); PLATELET COUNT,PLT 263 K/uL (150-400); RED BLOOD CELL COUNT 4.28 M/uL (4.10-5.30); WHITE BLOOD CELL COUNT,WBC 5.42 K/uL (3.9-11.3)
[2024-12-21 08:20] LABS: A/G RATIO 1.3 (0.9-1.6); ALBUMIN 3.8 g/dL (3.4-5.0); BILIRUBIN TOTAL 0.4 mg/dL (0.2-1.0); CALCIUM 8.6 mg/dL (8.5-10.1); CREATININE 1.1 mg/dL (0.6-1.0); EST CRCL DRUG DOSING (CG) 54.45 mL/min; POTASSIUM,K 3.5 mmol/L (3.5-5.1); PROTEIN TOTAL,TP 6.8 g/dL (6.4-8.2)
[2024-12-21 10:35] VITALS: BP 119/68; PULSE 62
== END 2024-12-21 10:33 | disposition home or self-care (01) ==
LOC: MW.ED 06:46
DX: J06.9 Acute upper respiratory infection, unspecified (principal); B97.89 Other viral agents as the cause of diseases classified elsewhere; M65.4 Radial styloid tenosynovitis [de Quervain]; E78.00 Pure hypercholesterolemia, unspecified; E66.9 Obesity, unspecified; E11.9 Type 2 diabetes mellitus without complications; Z90.49 Acquired absence of other specified parts of digestive tract; Z90.710 Acquired absence of both cervix and uterus; Z79.899 Other long term (current) drug therapy; Z88.8 Allergy status to other drugs, medicaments and biological substances; Z91.018 Allergy to other foods; Z91.048 Other nonmedicinal substance allergy status; Z75.3 Unavailability and inaccessibility of health-care facilities
CPT/HCPCS: 36415; 71046; 71046-26; 73110-26-LT; 73110-LT; 80053; 84484; 85025; 85379; 93005; 93010; 99284; 99285

== ENCOUNTER 2025-04-18 12:16 | Emergency (ER) | payer BC ==
[2025-04-18] MEDS ORDERED: Sodium Chloride 0.9% 2.5 ML Syringe FLUSH PRN (12:24)
[2025-04-18] MEDS ORDERED: Sodium Chloride 0.9% 10 ML Syringe FLUSH PRN (12:24)
[2025-04-18] MEDS: Ondansetron 4 MG/2 ML SDV IVPUSH ONE (12:29)
[2025-04-18 12:44] LABS: INR 0.99 (0.86-1.11)
[2025-04-18 12:50] LABS: BASOPHILS ABSOLUTE AUTO 0.05 K/uL (0.00-0.20); BASOPHILS PERCENT AUTO 0.8 % (0.0-1.0); EOSINOPHILS ABSOLUTE AUTO 0.19 K/uL (0.00-0.45); EOSINOPHILS PERCENT AUTO 3.0 % (0.0-6.0); IMMATURE GRAN ABSOLUTE AUTO 0.01 K/uL (0.00-0.05); IMMATURE GRAN PERCENT AUTO 0.2 % (0.0-0.4); LYMPHOCYTES ABSOLUTE AUTO 2.60 K/uL (1.00-4.80); LYMPHOCYTES PERCENT AUTO 41.5 % (24.0-44.0); MEAN PLATELET VOLUME 10.0 fL (9.4-12.3); MONOCYTES ABSOLUTE AUTO 0.58 K/uL (0.00-0.80); MONOCYTES PERCENT AUTO 9.3 % (0.0-8.0); NEUTROPHILS ABSOLUTE AUTO 2.83 K/uL (1.80-7.70); NEUTROPHILS PERCENT AUTO 45.2 % (41.0-71.0); NRBC ABSOLUTE 0.00 K/uL (0.00-0.02); NRBC PERCENT 0.0 /100WBC (0.0-0.2); PLATELET COUNT,PLT 315 K/uL (150-400); RED BLOOD CELL COUNT 4.97 M/uL (4.10-5.30); WHITE BLOOD CELL COUNT,WBC 6.26 K/uL (3.9-11.3)
[2025-04-18 13:11] LABS: CHOLESTEROL HDL 60.0 mg/dL (40-60); CHOLESTEROL LDL CALCULATED 138.0 mg/dL (60-180); CHOLESTEROL TOTAL 222.0 mg/dL (50-200); VLDL CHOLESTEROL 24.0 mg/dL (5-55)
[2025-04-18 13:41] LABS: A/G RATIO 1.3 (0.9-1.6); ALANINE AMINOTRANSFERASE,ALT 29.0 IU/L (14-63); ASPARTATE AMNIOTRANSFERASE,AST 21.0 IU/L (15-37); BILIRUBIN TOTAL 0.6 mg/dL (0.2-1.0); BLOOD UREA NITROGEN,BUN 17.0 mg/dL (7.0-18.0); CARBON DIOXIDE,CO2 24.8 mmol/L (21.0-32.0); CHLORIDE,CL 104.0 mmol/L (98-107); CREATININE 1.1 mg/dL (0.6-1.0); EST CRCL DRUG DOSING (CG) 54.45 mL/min; ESTIMATED GFR 61.0 mL/min (>60); GLUCOSE RANDOM 104.0 mg/dL (74-106); POTASSIUM,K 3.9 mmol/L (3.5-5.1); PRO B-TYPE NATRIUR PEPT,BNPPRO 210.0 pg/mL (0-125); PROTEIN TOTAL,TP 7.6 g/dL (6.4-8.2); SODIUM,NA 143.0 mmol/L (136-145)
[2025-04-18] MEDS: Ketorolac 30 MG/ML SDV IVPUSH ONE (13:50)
[2025-04-18 13:59] LABS: APPEARANCE,URINE CLEAR; GLUCOSE,URINE NEGATIVE (NEGATIVE); OCCULT BLOOD,URINE NEGATIVE (NEGATIVE)
[2025-04-18 14:09] LABS: AMPHETAMINES SCREEN, URINE NEGATIVE (CUTOFF=500); BUPRENORPHINE SCREEN,URINE NEGATIVE (CUTOFF=10); METHADONE SCREEN, URINE NEGATIVE (CUTOFF=200); METHAMPHETAMINES SCREEN, URINE NEGATIVE (CUTOFF=500); OXYCODONE SCREEN,URINE NEGATIVE (CUT0FF=100); PCP SCREEN,URINE NEGATIVE (CUTOFF=25); THC SCREEN,URINE 20 NG/ML NEGATIVE (CUTOFF=50)
[2025-04-18 14:31] VITALS: BP 127/85; PULSE 60
== END 2025-04-18 14:31 | disposition home or self-care (01) ==
LOC: MW.ED 12:16
DX: R55 Syncope and collapse (principal); G43.909 Migraine, unspecified, not intractable, without status migrainosus; E86.0 Dehydration; R53.1 Weakness; R82.4 Acetonuria; R11.0 Nausea; E78.00 Pure hypercholesterolemia, unspecified; E11.9 Type 2 diabetes mellitus without complications; E66.9 Obesity, unspecified; Z90.49 Acquired absence of other specified parts of digestive tract; Z90.710 Acquired absence of both cervix and uterus; Z88.8 Allergy status to other drugs, medicaments and biological substances; Z91.018 Allergy to other foods; Z79.899 Other long term (current) drug therapy
CPT/HCPCS: 36415; 70450; 71045; 80053; 80061; 80305; 81003; 82550; 82947; 83036; 83690; 83735; 83880; 84484; 85025; 85610; 93005; 96361; 96374; 96375; 99285; A9270; J1885; J2405; J7030; 93010; 99284

== ENCOUNTER 2025-07-04 11:27 | Emergency (ER) | payer BC ==
[2025-07-04] MEDS ORDERED: Sodium Chloride 0.9% 10 ML Syringe FLUSH PRN (12:11)
[2025-07-04] MEDS ORDERED: Sodium Chloride 0.9% 2.5 ML Syringe FLUSH PRN (12:11)
[2025-07-04] MEDS: Orphenadrine 60 MG/2 ML Inj IV ONE (12:29)
[2025-07-04] MEDS: Ondansetron 4 MG/2 ML SDV IVPUSH ONE (12:32)
[2025-07-04] MEDS: Ketorolac 30 MG/ML SDV IVPUSH ONE (12:33)
[2025-07-04] MEDS: diphenhydrAMINE 50 MG/ML SDV IVPUSH ONE (12:35)
[2025-07-04 14:08] VITALS: BP 135/61; PULSE 64
== END 2025-07-04 14:06 | disposition home or self-care (01) ==
LOC: MW.ED 11:27
DX: G43.809 Other migraine, not intractable, without status migrainosus (principal); J06.9 Acute upper respiratory infection, unspecified; I10 Essential (primary) hypertension; E78.00 Pure hypercholesterolemia, unspecified; E11.9 Type 2 diabetes mellitus without complications; E66.9 Obesity, unspecified; Z68.26 Body mass index [BMI] 26.0-26.9, adult; Z90.49 Acquired absence of other specified parts of digestive tract; Z90.710 Acquired absence of both cervix and uterus; Z88.8 Allergy status to other drugs, medicaments and biological substances; Z91.018 Allergy to other foods; Z79.899 Other long term (current) drug therapy
CPT/HCPCS: 87428; 87651; 96374; 96375; 99283; J1200; J1885; J2360; J2405; J7030